=== PATIENT | male | born 1940 | race Caucasian/White ===

== ENCOUNTER 2019-05-08 14:21 | Observation (INO) | payer MEDICARE, BC ==
[2019-05-08] MEDS ORDERED: NS 0.9% 1000 ML** 1,000 ML IV ONE (14:28)
--- NOTE | 2019-05-08 14:30 | ED ---
Neurological HPI - HPI Summary HPI Summary: Patient is a 79 y/o M presenting to [facility] with complaints of impaired speech, confusion, and fatigue. Danyell ling was called at 1423 on overhead, provider at bedside at this time to evaluate the patient. He states that Sx onset around 1300 today, 05/08/19. He characterizes his speech as stuttering and gibberish. Impaired speech is resolved at present, he reports episode lasted around 30-45 minutes. witnessed event. He states that he has had similar episodes previously but not of this length of time. No WORTHY is reported. Patient is on Eliquis. He is not a TPA candidate. He denies Hx of stroke, diabetes, HLD. Patient has Hx of HTN and notes he took his BP meds today. Patient does not report any fever, chills, erythema of eyes, sore throat, CP, SOB, cough, abdominal pain, N/V, dysuria, hematuria, myalgia, edema, rash, and dizziness. Home medications and allergies are reviewed. - History of Current Complaint Stated Complaint: STROKE/CHEST PAIN Hx Obtained From: Patient Onset/Duration: Started hours ago, Resolved Timing: Intermittent Episodes Lasting: - 30-45 minutes Character: Impaired Speech, Confusion, Other: - fatigue Associated Signs and Symptoms: Positive: Confusion, Impaired Speech. Negative: Headache, Dizziness, Nausea/Vomiting, Fever, Chest Pain, Shortness of Breath - Additional Pertinent History Primary Care Physician: [id number] - Allergy/Home Medications Allergies/Adverse Reactions: Allergies Allergy/AdvReac Type Severity Reaction Status Date / Time tetracycline Allergy Rash Verified 05/08/19 18:42 Home Medications: Home Medications Allopurinol TAB* [Zyloprim 100 MG TAB*] 100 mg PO DAILY 05/08/19 [History Confirmed 05/08/19] Colchicine* [Colcrys*] 0.6 mg PO DAILY 05/08/19 [History Confirmed 05/08/19] Cyanocobalamin TAB* [Vitamin B12 TAB*] 1,000 mcg PO DAILY 05/08/19 [History Confirmed 05/08/19] Losartan Potassium 100 mg PO DAILY 05/08/19 [History Confirmed 05/08/19] Omeprazole CAP (NF) [Prilosec CAP* 20 MG] 20 mg PO DAILY 05/08/19 [History Confirmed 05/08/19] PMH/Surg Hx/FS Hx/Imm Hx Endocrine/Hematology History: Denies: Hx Diabetes Cardiovascular History: Reports: Hx Hypercholesterolemia, Hx Hypertension - ON MEDS Denies: Hx Congestive Heart Failure, Hx Pacemaker/ICD, Other Cardiovascular Problems/Disorders GI History: Denies: Other GI Disorders History: Reports: Hx Benign Prostatic Hyperplasia Denies: Hx Renal Disease Sensory History: Reports: Hx Contacts or Glasses - GLASSES Denies: Hx Hearing Aid Opthamlomology History: Reports: Hx Contacts or Glasses - GLASSES Neurological History: Reports: Hx Transient Ischemic Attacks (TIA) - first TIA today 05/14/13, Other Neuro Impairments/Disorders - neuropathy in feet Psychiatric History: Denies: Hx Panic Disorder - Surgical History Surgery Procedure, Year, and Place: Trigger finger surgeries: L thumb 2011, R middle finger 03/07/09, left middle finger 07/26/08, R little finger 05/06/08, R and L ring finger 10/14/06;. R knee arthroscopy 12/31/05,. Appendectomy;. LUMBAR SPINE SURGERY 15 YEARS AGO;. LEFT EYE, 15 YRS AGO Hx Anesthesia Reactions: No - Immunization History Date of Tetanus Vaccine: <10yrs Date of Influenza Vaccine: Fall 2012 Infectious Disease History: Denies: Traveled Outside the [place] in Last 30 Days - Family History Known Family History: Positive: Diabetes - Social History Alcohol Use: Daily Alcohol Amount: 2 DRINKS Substance Use Type: Reports: None Smoking Status (MU): Former Smoker Amount Used/How Often: 1.5 PACKS A DAY Have You Smoked in the Last Year: No Review of Systems Positive: Fatigue. Negative: Fever, Chills Negative: Erythema Negative: Sore Throat Negative: Chest Pain Negative: Shortness Of Breath, Cough Negative: Abdominal Pain, Vomiting, Nausea Negative: dysuria, hematuria Negative: Myalgia, Edema Negative: Rash Neurological: Other - negative - dizziness; positive - impaired speech and confusion Negative: Headache All Other Systems Reviewed And Are Negative: Yes Physical Exam - Summary Physical Exam Summary: Constitutional: Well-developed, Well-nourished, Alert. (-) Distressed Skin: Warm, Dry HENT: Normocephalic; Atraumatic Eyes: Conjunctiva normal Neck: Musculoskeletal ROM normal neck. (-) JVD, (-) Stridor, (-) Tracheal deviation Cardio: Rhythm regular, rate normal, Heart sounds normal; Intact distal pulses; The pedal pulses are 2+ and symmetric. Radial pulses are 2+ and symmetric. (-) Murmur Pulmonary/Chest wall: Effort normal. (-) Respiratory distress, (-) Wheezes, (-) Rales Abd: Soft, (-) tenderness, (-) Distension, (-) Guarding, (-) Rebound Musculoskeletal: (-) Edema Lymph: (-) Cervical adenopathy Neuro: Alert, Oriented x3, Strength normal, Cranial nerves II-XII are grossly intact. (-) Dysmetria, (-) Nystagmus, (-) Ataxia by finger to nose testing, (-) Sensory deficit. GCS 15, NIH 0. Psych: Mood and affect Normal Triage Information Reviewed: Yes Vital Signs On Initial Exam: Initial Vitals Temp Pulse Resp BP Pulse Ox 97.8 F 68 13 161/96 97 05/08/19 14:27 05/08/19 14:27 05/08/19 14:27 05/08/19 14:27 05/08/19 14:27 Vital Signs Reviewed: Yes - [place] Coma Scale Best Eye Response: 4 - Spontaneous Best Motor Response: 6 - Obeys Commands Best Verbal Response: 5 - Oriented Coma Scale Total: 15 Procedures - Sedation Patient Received Moderate/Deep Sedation with Procedure: No Diagnostics - Laboratory Result Diagrams: 05/09/19 04:59 05/09/19 04:59 Lab Statement: Any lab studies that have been ordered have been reviewed, and results considered in the medical decision making process. - Radiology CXR Radiology Interpretation Completed By: Radiologist Summary of Radiographic Findings: CXR IMPRESSION: #. No evidence for acute intrathoracic disease. THIS REPORT WAS REVIEWED BY DR. DIMAS. - CT BRAIN CT CT Interpretation Completed By: Radiologist Summary of CT Findings: BRAIN CT IMPRESSION: NO ACUTE INTRACRANIAL PATHOLOGY. CHRONIC SMALL VESSEL ISCHEMIC CHANGES. THIS REPORT WAS REVIEWED DR. DIMAS HEAD CTA CT Interpretation Completed By: Radiologist Summary of CT Findings: HEAD CTA IMPRESSION: ATHEROSCLEROSIS. NO INTERNAL CAROTID ARTERY STENOSIS BY NASA CRITERIA. NO ANEURYSM, VASCULAR MALFORMATION, OCCLUSION, OR STENOSIS OF THE VISUALIZED INTRACRANIAL. CIRCULATION. THIS REPORT WAS REVIEWED BY DR. DIMAS. - EKG 1454 Cardiac Rate: Other Rate - afib with rate of 63 BPM EKG Rhythm: Atrial Fibrillation Summary of EKG Findings: EKG showed afib with rate of 63 BPM, RBBB and no STEMI. ED physician has reviewed and interpreted this EKG. NIH Scale - NIH Scale Level of Consciousness: Alert/Keenly Responsive Ask Patient the Month and His/Her Age: Both Correct Ask Pt to Open/Close Eyes and Dust Operator/Release Non-Paretic Hand: Both Correctly Best Gaze (Only Horizontal Eye Movement): Normal Visual Field Testing: No Visual Loss Facial Paresis-Pt to Smile & Close Eyes or Grimace Symmetry: Normal/Symmetrical Motor Function - Right Arm: No Drift-Holds 10 Seconds Motor Function - Left Arm: No Drift-Holds 10 Seconds Motor Function - Right Leg: No Drift-Holds 10 Seconds Motor Function - Left Leg: No Drift-Holds 10 Seconds Limb Ataxia-Must be out of Proportion to Weakness Present: Absent Sensory (Use Pinprick to Test Arms/Legs/Trunk/Face): Normal Best Language (Describe Picture, Name Items): No Aphasia Dysarthria (Read Several Words): Normal Extinction and Inattention: No Abnormality Total Score: 0 Course/Dx - Course Course Of Treatment: Patient is a 79 y/o M presenting to [facility] with complaints of impaired speech, confusion, and fatigue. Danyell anuradha was called at 1423 on overhead, provider at bedside at this time to evaluate the patient. He states that Sx onset around 1300 today, 05/08/19. He characterizes his speech as stuttering and gibberish. Impaired speech is resolved at present, he reports episode lasted around 30-45 minutes. witnessed event. He states that he has had similar episodes previously but not of this length of time. No WORTHY is reported. Patient is on Eliquis. He is not a TPA candidate. He denies Hx of stroke, diabetes, HLD. Patient has Hx of HTN and notes he took his BP meds today. On physical exam, patient is Alert, Oriented x3, Strength normal, Cranial nerves II-XII are grossly intact. (-) Dysmetria, (-) Nystagmus, (-) Ataxia by finger to nose testing, (-) Sensory deficit. GCS 15, NIH 0. CXR IMPRESSION: #. No evidence for acute intrathoracic disease. BRAIN CT IMPRESSION: NO ACUTE INTRACRANIAL PATHOLOGY. CHRONIC SMALL VESSEL ISCHEMIC CHANGES. Bloodwork was obtained. Abnormal values include trop 0.07, vitamin B12 > 1450, INR 1.42, BUN 30, creatinine 1.46, BUN/creatinine ratio 20.5, absolute monos 0.9. Lipid profile WNL. During ED course, patient received fluids. HEAD CTA IMPRESSION: ATHEROSCLEROSIS. NO INTERNAL CAROTID ARTERY STENOSIS BY NASA CRITERIA. NO ANEURYSM, VASCULAR MALFORMATION, OCCLUSION, OR STENOSIS OF THE VISUALIZED INTRACRANIAL. CIRCULATION. 1512 - Dr. Rendon recommends admission of patient for observation. 1530 - Patient's case was discussed with Dr. Montaño, Dr. Montaño accepts for admission. - Diagnoses Provider Diagnoses: TIA (transient ischemic attack) During the Visit The Following Alert/Code Occurred: Code Santos - Code ling was called at 1423 on overhead, provider at bedside at this time to evaluate the patient. 1427 - Dr. Rendon in ED to evaluate patient BRAIN CT done at 1428. 1437 - Dr. Crawford communicated results of brain CT over the phone. - Physician Notifications Discussed Care Of Patient With: Hira Rendon Time Discussed With Above Provider: 15:12 Instructed by Provider To: Other - 1512 - Dr. Rendon recommends admission of patient for observation. 1530 - Patient's case was discussed with Dr. Montaño, Dr. Montaño accepts for admission. - Critical Care Time Critical Care Time: 30-74 min - 60 MINUTES CCT Discharge ED - Sign-Out/Discharge Documenting (check all that apply): Patient Departure - admit All imaging exams completed and their final reports reviewed: Yes Patient Received Moderate/Deep Sedation with Procedure: No - Discharge Plan Condition: Good Disposition: ADMITTED TO [facility] - Billing Disposition and Condition Condition: GOOD Disposition: Admitted to [facility] - Attestation Statements Document Initiated by Dahiana: Yes Documenting Scribe: RAJINDER ULLOA Provider For Whom Dahiana is Documenting (Include Credential): PAM DIMAS MD Scribe Attestation: RAJINDER Wan, scribed for PAM DIMAS MD on 05/23/19 at 1301. Scribe Documentation Reviewed: Yes Provider Attestation: The documentation as recorded by the RAJINDER boucher accurately reflects the service I personally performed and the decisions made by me, PAM DIMAS MD Status of Scribe Document: Viewed
[2019-05-08 14:56] LABS: ABS Eosinophils 0.1 10^3/ul (0-0.6); ABS Lymphocytes 2.3 10^3/ul (1.0-4.8); ABS Monocytes 0.9 10^3/ul (0-0.8); ABS Neutrophils 4.3 10^3/ul (1.5-7.7); Eosinophil % 1.3 %; Hematocrit 47 % (42-52); Hemoglobin 15.7 g/dL (14.0-18.0); Lymphocyte % 30.6 %; Mean Corpuscular HGB Conc 33 g/dL (31-36); Mean Corpuscular Hemoglobin 30 pg (27-31); Mean Corpuscular Volume 90 fL (80-94); Mean Platelet Volume 7.7 fL (7.4-10.4); Platelet Count 189 10^3/uL (150-450); Red Blood Count 5.25 10^6 /uL (4.18-5.48); Red Cell Distribution Width 15 % (10-15); White Blood Count 7.6 10^3/uL (3.5-10.8)
[2019-05-08 15:04] LABS: Activated Partial Thrombo Time 35.2 seconds (26.0-38.0); INR 1.42 (0.82-1.09)
[2019-05-08 15:18] LABS: ALT 34 U/L (7-52); AST 38 U/L (13-39); Albumin/Globulin Ratio 1.4 (1-3); Alkaline Phosphatase 98 U/L (34-104); Anion Gap 6 mmol/L (2-11); BUN/Creatinine Ratio 20.5 (8-20); Blood Urea Nitrogen 30 mg/dL (6-24); CO2 Carbon Dioxide 28 mmol/L (22-32); Chloride 104 mmol/L (101-111); Cholesterol 149 mg/dL; EGFR African American 56.2 (>60); EGFR Non-African American 46.5 (>60); Globulin 2.8 g/dL (2-4); Glucose 93 mg/dL (70-100); HDL Cholesterol 49.1 mg/dL; LDL Cholesterol 76 mg/dL; Potassium 4.3 mmol/L (3.5-5.0); Sodium 138 mmol/L (135-145); Total Protein 6.8 g/dL (6.4-8.9); Triglycerides 121 mg/dL
[2019-05-08 15:22] LABS: Troponin I 0.07 ng/mL (<0.04)
[2019-05-08] MEDS ORDERED: Iodixanol* (CONTRAST) 320 MG/ML 100 ML SDV IV ONE (15:52)
[2019-05-08 16:09] LABS: TSH (Thyroid Stimulating Horm) 1.61 mcIU/mL (0.34-5.60)
--- NOTE | 2019-05-08 16:18 | CONS ---
NEUROLOGY CONSULTATION NOTE: DATE OF CONSULT: 05/08/19 CONSULTING PROVIDER: Dr. Dmitry Banegas. REASON FOR CONSULT: Slurred speech. CHIEF COMPLAINT: Garbled speech. 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 The patient was working outside to remove a battery from a four-brown. His spouse witnessed the event. He was last known well at 1300. Symptoms onset was at 1335. His stated that his back was turned to her, but he was having trouble finding his words and his words were slurred and garbled. This lasted for approximately 5- 10 minutes. The patient denied any lateralized weakness. His spouse asked the patient that if he was having trouble with words and he reported yes and therefore he was transported here for further evaluation. The patient takes Eliquis regularly. NIH Stroke Scale upon arrival was 0. NIH Stroke Scale on my evaluation is 0. Code ling was activated at 1421. I was at bedside at 1425. The patient is not a tPA candidate due to low NIH, being asymptomatic and on anticoagulation therapy (decision made: 1425). The patient took his Eliquis dose this morning. He also stated that he just had a Holter monitor over the last 24 hours for symptoms of palpitations. He was being evaluated for atrial fibrillation with rapid ventricular rate. Results of the Holter monitoring are not available. The patient had a CT head without contrast completed on 05/08/19 that showed diffuse cortical atrophy with extensive advanced white matter changes in the subcortex. There is also calcification of the left vertebral artery. There is no hyperdense signs. The patient is not on aspirin. PAST MEDICAL HISTORY: Hypertension, dyslipidemia, TIA, peripheral neuropathy. PAST SURGICAL HISTORY: Right meniscal repair. HOME MEDICATIONS: 1. Pravastatin 40 mg nightly. 2. Indomethacin 25 mg p.o. q.i.d. 3. Furosemide 20 mg p.o. daily. 4. Eliquis 5 mg p.o. b.i.d. 5. Viagra 100 mg p.o. daily as needed. ALLERGIES: MORPHINE SULFATE, TETRACYCLINE. FAMILY HISTORY: No family history of seizures. The patient's mother of complications of Alzheimer disease. His father had TIAs and strokes and at age 86. SOCIAL HISTORY: The patient is a former smoker, stopped smoking approximately 30 years ago. He had smoked a pack a day for 20 years. 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 He is with his , who is in the emergency room at this time. REVIEW OF SYSTEMS: A 14-point review of systems was obtained and otherwise negative except for what was mentioned in the HPI. PHYSICAL EXAM: Vitals: Temperature of 97.8, pulse of 68, respiratory rate of 13, oxygen saturation of 97%, blood pressure 161/96. Well-nourished, well- developed, elderly man, in no acute distress. Head: Atraumatic, normocephalic without any obvious abnormality. Neck is supple and symmetrical with no carotid bruits. Eyes: Conjunctivae/corneas are clear. Cardiovascular: Irregular rate and rhythm with no murmurs. Pulmonary: Clear to auscultation bilaterally. No wheezing or rhonchi. Extremities: Erythematous area in the medial foot around the great toe. Skin: No skin lesions or lacerations. Psych : Affect is broad, normal mood. Easy to establish rapport. Neurological Examination: Mental Status: Awake, alert, oriented to person, place, time, and general circumstances. Speech and language including fluency, repetition, reading, and comprehension were assessed and found to be normal. The patient has mild memory impairment, but according to his , he is extremely sharp with no memory problems. He was delayed in responding, although he answered all questions correctly. Cranial Nerves: Pupils are equal, round, and reactive to light. Extraocular muscles are intact. Normal sensation in the face bilaterally. No facial asymmetry. Tongue is symmetric and midline with no atrophy or fasciculation. Motor Examination: 5/5 strength in the upper and lower extremities symmetrically. Normal tone and bulk throughout. Sensation is intact to light touch throughout. Reflexes trace in the biceps, triceps, brachioradialis, knees, and 0 at the ankles bilaterally. Coordination: Normal ptauhj-tl-lssi and gbnv-op-motx testing. Gait: Normal stance with no ataxia. DIAGNOSTIC STUDIES/LAB DATA: Labs are not available at this time, but I reviewed a transesophageal echo completed on 03/26/17 that showed an EF of 50% to 55%. There is a report that stated that unable to rule out a mass or thrombus in the left atrial appendage. There is possible interatrial septum that appears lipomatous. 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 1. Dysarthria and aphasia concerning for left middle cerebral artery vascular territory transient ischemic attack versus small stroke. The patient is not a candidate for IV tPA due to NIH Stroke Scale is 0 currently and he is on anticoagulation therapy. This assessment and decision was made at 1425. He is not a candidate for mechanical thrombectomy due to low NIH Stroke Scale; therefore, we did not move forward and assess for large vessel occlusion. RECOMMENDATIONS: Please admit under observation. Start aspirin 81 mg daily in addition to Eliquis. Discussed hemorrhage risk with the patient and spouse. The combination of therapy will be just for a few months, 3-6 months- unless he has intracranial stenosis. Please obtain a transthoracic echo with bubble study to evaluate for the possible mass or lesion in the left atrium. No need for CTA head and neck since the patient is currently asymptomatic and has HAYLIE. I have ordered an MRI of the brain, MRA head, MRA neck without contrast to evaluate for any carotid disease or small stroke. No need for [employer], PT, OT due to the patient being asymptomatic at this time. VTE prophylaxis with Eliquis for his atrial fibrillation. Maximize secondary stroke preventions. Neuro checks every 4 hours. Vital checks every 4 hours. Obtain vitamin B12 and TSH levels. I will continue to follow. CRITICAL CARE TIME: 35 minutes for which the patient was assessed for sudden onset neurological disturbance and he was evaluated for tPA therapy which he was not a candidate for. [id number]/[facility] #: [id number] SASHA
--- NOTE | 2019-05-08 16:27 | ECHO ---
*[facility] [place]* [place] [address] Fax #: [phone] Transthoracic Echocardiogram Patient: Louis Beckham : 1940 Study Date: 05/08/2019 Age: 79 Gender: M HR: 53 bpm Height: 73 in /185.4 cm BSA: 2.03 m^2 Weight: 173.6 lb /78.9 kg BMI: 23 kg/m^2 *Boat Puller: * Suzanna Castro [facility] *Referring Physician: * Hira Rendon *Reading Physician: * Jani Ryan MD Indications: TIA. History: Atrial fibrillation. Atrial flutter. Risk factors: Hypertension. Dyslipidemia. Conclusions Summary: - Left ventricle: The cavity size is normal. Wall thickness is moderately increased. Systolic function is normal. The estimated ejection fraction is 50-55%. Wall motion is normal; there are no regional wall motion abnormalities. - Right ventricle: Systolic function is low normal. - Left atrium: The atrium is severely dilated. - Atrial septum: A PFO is not demonstrated by color Doppler or agitated saline contrast. - Mitral valve: There is mild regurgitation. - Aortic valve: There is no evidence of stenosis. There is mild regurgitation. - Tricuspid valve: There is mild regurgitation. - Pericardium, extracardiac: There is no significant pericardial effusion. - Compared to study of 03/26/17, there is no change. Study data: Transthoracic echocardiogram. Procedure: Transthoracic echocardiography was performed. Image quality was good. A bubble study was performed. Images 34 and 35. Complete 2D, spectral Doppler, and color flow Doppler. Location: Emergency department. Patient status: Inpatient. Patient room number: 12. Rhythm: Atrial fibrillation. Findings Left ventricle: The cavity size is normal. Wall thickness is moderately increased. Systolic function is normal. The estimated ejection fraction is 50-55%. Wall motion is normal; there are no regional wall motion abnormalities. Left ventricular diastolic function parameters are indeterminate. Right ventricle: The cavity size is normal. Systolic function is low normal. Left atrium: The atrium is severely dilated. Right atrium: The atrium is severely dilated. Atrial septum: A PFO is not demonstrated by color Doppler or agitated saline contrast. Mitral valve: The Mitral valve annulus appears calcified. The leaflets are mildly thickened. There is no evidence of stenosis. There is mild regurgitation. Aortic valve: The valve is trileaflet. The leaflets are mildly thickened. There is no evidence of stenosis. There is mild regurgitation. Tricuspid valve: The leaflets are normal thickness. There is no evidence of stenosis. There is mild regurgitation. Pulmonic valve: The leaflets are normal thickness. There is no evidence of stenosis. There is trace regurgitation. Aorta: The aortic root appears normal. Pericardium: There is no significant pericardial effusion. Pulmonary arteries: Not well visualized. Systolic pressure is within the normal range. Systemic veins: Inferior vena cava: The vessel is dilated. There is (>= 50%) respiratory change in the IVC dimension. Measurements Left ventricle Value Ref Aortic valve continued Value Ref NIKITA, LAX (L) 3.4 cm 4.2 - 5.8 Peak v, S 0.86 m/sec ----- ESD, LAX 2.7 cm 2.5 - 4.0 Peak grad, S 3.0 mm Hg ----- FS, LAX (L) 20 % 25 - 43 PW, ED, LAX (H) 1.9 cm 0.6 - 1.0 Mitral valve Value Ref EF (L) 41 % 52 - 72 Peak E 0.94 m/sec ----- E', lat colten, TDI (L) 7.9 cm/sec >=10.0 Peak A 0.02 m/sec - ---- E/e', lat colten, 12 Decel time 106 ms ---- - TDI PHT 41 ms ----- E', med colten, TDI (L) 5.8 cm/sec >=7.0 Mean grad, D 2.0 mm Hg - ---- E/e', med colten, 16 Peak grad, D 4.0 mm Hg ---- - TDI Peak E/A ratio 44.9 ----- E', avg, TDI 6.9 cm/sec MVA, PHT 3.6 cm^2 ---- - E/e', avg, TDI 14 <=14 Pulmonic valve Value Ref LVOT Value Ref Peak v, S 0.51 m/sec ----- Peak ezequiel, S 0.66 m/sec Peak grad, S 1.0 mm Hg ----- Ventricular septum Value Ref Tricuspid valve Value Ref IVS, ED (H) 1.7 cm 0.6 - 1.0 TR peak v 2.24 m/sec <=2.8 Peak RV-RA grad, S 20 mm Hg ----- Right ventricle Value Ref NIKITA, LAX 3.0 cm Aortic root Value Ref NIKITA minor ax, A4C 2.9 cm 1.9 - 3.5 Root diam 3.6 cm <4.2 mid Pressure, S 28 mm Hg Ascending aorta Value Ref AAo AP diam, S 3.1 cm ----- Left atrium Value Ref AP dim, ES (H) 4.80 cm 3.00 - Decending aorta Value Ref 4.00 Al peak ezequiel 0.36 m/sec ----- ML dim, A4C 4.9 cm SI dim, A4C 7.7 cm Pulmonary artery Value Ref Vol/bsa, ES, A/L (H) 69 ml/m^2 16 - 34 Pressure, S 27.0 mm Hg ----- Right atrium Value Ref Inferior vena cava Value Ref SI dim, ES (H) 7.2 cm 3.4 - 5.3 Diam 2.6 cm ----- ML dim, ES, A4C (H) 5.0 cm 2.6 - 4.4 Estimated RAP 8 mm Hg Aortic valve Value Ref Colten diam, ED 2.3 cm Legend: (L) and (H) jose carlos values outside specified reference range. Prepared and electronically signed by Jani Ryan MD 05/08/2019 16:26
[2019-05-08] MEDS ORDERED: Acetaminophen TAB* 325 MG PO PRN (18:00)
[2019-05-08 18:43] LABS: Troponin I 0.07 ng/mL (<0.04)
[2019-05-08] MEDS: Apixaban* 5 MG TAB PO SCH (20:08)
[2019-05-08] MEDS: Aspirin EC TAB* 81 MG TAB.EC PO SCH (20:08)
--- NOTE | 2019-05-08 20:12 | HP ---
CC: Dr. Kathleen * HISTORY AND PHYSICAL: DATE OF ADMISSION: 05/08/19 PROVIDER: Dianna Betancourt NP. PRIMARY CARE PROVIDER: Dr. Kathleen. ATTENDING PHYSICIAN WHILE IN THE HOSPITAL: Dr. Deanna Arams * (dictated by Dianna Betancourt NP). CHIEF COMPLAINT: Difficulty with word-finding, garbled speech. HISTORY OF PRESENT ILLNESS: Mr. Beckham is an 79-year-old gentleman with a past medical history significant for history of TIA, atrial flutter, history of gout and hyperlipidemia who presented to the emergency room after an episode of difficulty with word-finding and garbled speech that lasted 10 to 20 minutes. The patient reports that he awoke this morning. He felt in his normal state of health. He had been outside doing activities without any difficulty. He reports at approximately 1 p.m. this afternoon, he was talking to his and he was having trouble with word finding, confusion, and stumbling with words. Due to these symptoms, he presented to the emergency room for further evaluation. The patient does state that he has had some generalized weakness and he has felt tired times several months, but he denies any recent fever, chills, unintended weight loss, chest pain or edema, cough, hemoptysis, or shortness of breath. No nausea, vomiting, diarrhea or abdominal pain, hematuria or dysuria. Denies any focal weakness or sensory loss, visual complaints, dysphagia, arthralgias, myalgias, rashes, lesions, or open sores. Denies any psychosis or anxiety. While in the emergency room, the patient was a code ling. The patient was seen and evaluated by Dr. Rendon from neurology, who recommended that the patient be started on aspirin 81 mg, continue his pravastatin at 40 mg, neuro checks q.4 hours, and an MRI of the brain. The patient's NIH scale was 0 as his symptoms had totally resolved prior to evaluation in the emergency room. Due to his episode of difficulty with word finding and stumbling with words, hospital medicine was asked to see and evaluate for admission. PAST MEDICAL HISTORY: Significant for TIA, atrial flutter, gout, and hyperlipidemia. PAST SURGICAL HISTORY: Cataracts. HOME MEDICATIONS: Include: 1. Colchicine 0.6 mg p.o. daily. 2. Omeprazole 20 mg p.o. daily. 3. Vitamin B12 at 1000 mcg p.o. daily. 4. Allopurinol 100 mg p.o. daily. 5. Eliquis 5 mg p.o. b.i.d. 6. Losartan 100 mg p.o. daily. 7. Pravastatin 40 mg p.o. daily. 9. Norvasc 5 mg p.o. daily. 10. Metoprolol tartrate 50 mg p.o. b.i.d. ALLERGIES: To TETRACYCLINE. FAMILY [id number]: Father with a history of stroke. No reported history of diabetes or cancer in the family. SOCIAL HISTORY: The patient reports that he quit smoking 35 years ago. Prior to that, he smoked a pack a day for 35 years. He does report a daily martini. No illicit drug use. 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 He is . Surrogate decision maker in the event he is unable to make his own decisions is his . He is a full code. REVIEW OF SYSTEMS: A 14-point review of systems was completed and all pertinent positives were mentioned in the HPI. Otherwise, were negative. PHYSICAL EXAMINATION GENERAL: At this time, Mr. Beckham is an 79-year-old male. He is alert and oriented. Speech is clear. Resting on the stretcher in the emergency room. He is well developed and well nourished. VITAL SIGNS: Blood pressure 142/61, heart rate 52, respirations 16, O2 saturation 98%, temperature was 97.6. HEENT: Head is atraumatic, normocephalic. Eyes: EOMs are intact. Sclerae anicteric and not pale. Oral mucosa appeared to be moist. NECK: Supple. LUNGS: Clear to auscultation bilaterally. No wheezes, rales, or rhonchi. CARDIAC: S1, S2. Irregular rate and rhythm. No rubs or gallops. ABDOMEN: Soft and nontender. Bowel sounds are present x4. NEUROLOGIC: He is awake, alert, oriented x3. Speech is clear. Thought process is intact. There are no gross focal deficits. Handgrips are equal. There is no pronator drift. There is no leg drift. Push-pull is intact. Shoulder shrug is intact. [id number] is intact. Smile is equal. Tongue is midline. There is no facial asymmetry. Sensation is intact in all 4 extremities. SKIN: Intact. DIAGNOSTIC STUDIES/LAB DATA: WBCs are 7.6, RBCs 5.25, hemoglobin 15.7, hematocrit is 47, platelet count 189. INR 1.42, aPTT was 35.2. Sodium 138, potassium 4.3, chloride 104, carbon dioxide was 28, anion gap of 6, BUN 30, creatinine 1.46, glucose was 93, lactic acid 0.7, calcium 9.0. T-bili was 0.70 , ASTs were 38, ALTs were 34, alkaline phosphatase was 98. Troponin was 0.07. TSH was 1.61. Vitamin B12 was greater than 1450. The patient had a CT of the brain, radiologist's impression: No acute intracranial pathology. Small chronic vessel ischemic changes. He had a chest x-ray, radiologist's impression: No evidence of acute intrathoracic disease. He had an electrocardiogram that showed atrial fibrillation with a right bundle - branch block. He had a transthoracic echocardiogram, impression: Left ventricle: The cavity size is normal. The wall thickness is moderately increased. Systolic function is normal. Estimated ejection fraction 50% to 55%. Wall motion is normal. There are no regional wall motion abnormalities. Right ventricle: Systolic function is low normal. Right atrium is severely dilated. The atrial septum, a PFO was not demonstrated by color Doppler or agitated saline contrast. Mitral valve: There is mild regurgitation. Aortic valve: There is no evidence of stenosis. There is mild regurgitation. Tricuspid valve: There is mild regurgitation. Pericardium and extracardiac: There is no significant pericardial effusion. When compared to study from 03/26/17, there was no change. He had a CTA of the head and neck, radiologist's impression: Atherosclerosis. No internal carotid artery stenosis. No aneurysm, vascular malformation, occlusion, or stenosis is visualized in the intracranial circulation. ASSESSMENT AND PLAN: Mr. Beckham is an 79-year-old male with a past medical history significant for history of transient ischemic attack, atrial flutter, gout, and hyperlipidemia who presented to the emergency room with a 10- to 20- minute episode of difficulty with word finding and stumbling with words as well as confusion that resolved. He will be admitted under observation for: 1. Transient ischemic attack. The patient has returned to baseline at this time. He was seen in consultation by Dr. Rendon from neurology, who recommended neuro checks q.4 hours, aspirin 81 mg, continue his Pravachol at 40 mg p.o. daily, and secondary stroke prevention. He also ordered an MRI of the brain that is currently pending at this time. We will monitor the patient on telemetry overnight. 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 2. Acute kidney injury. The patient does have an elevated BUN and creatinine when compared to previous BUN and creatinine from 04/25/19. I suspect this could be related to dehydration. He did receive IV fluids in the emergency room. I will repeat a BMP in the a.m. We will avoid nephrotoxic medications. 3. Elevated troponin. The patient does have elevated troponin of 0.07. The patient in the past in 2017 also had an elevated troponin of 0.06 and has had previous elevation in troponins of 0.04 in 2016. I suspect this could be related to demand ischemia. The patient denies any chest pain. The patient did have a transthoracic echocardiogram that showed no wall motion abnormality. I will continue the patient on his beta flex and aspirin, Eliquis, and statin. I will repeat an EKG and continue to trend his troponin. 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 He does report a decrease in activity tolerance over the past 6 months, but denies exertional chest pain or shortness of breath. Would recommend further workup. 4. Atrial flutter. The patient does have a history of atrial flutter. He has had 3 episodes of pauses up to 2.08 seconds in the emergency room. We will continue to monitor him on telemetry. I will continue his metoprolol tartrate 50 mg p.o. b.i.d. with holding parameters for heart rate less than 50 and systolic blood pressure less than 110. We will continue him on his Eliquis. 5. Hyperlipidemia. The patient should continue on Pravachol 40 mg p.o. daily. 6. FEN: He can have a heart-healthy, caffeine-okay diet. 7. Code status: He is a full code. 8. DVT prophylaxis: We will continue his Eliquis. 9. Disposition: The patient will be placed under observation on [address] [place] [address]. TIME SPENT: Time spent on this admission was approximately 60 minutes, greater than half that time was spent at the bedside reviewing events leading thus far to his hospitalization, performing physical exam, and reviewing my plan of care. I have discussed this with my attending, Dr. Deanna Armas; she is in agreement with my plan. DIANNA BETANCOURT, UNIQUE [id number]/[facility] #: [id number] SASHA
[2019-05-08] MEDS ORDERED: Metoprolol Tartrate TAB* 25 MG PO SCH (21:00)
[2019-05-08] MEDS ORDERED: Metoprolol Tartrate TAB* 50 mg PO SCH (21:00)
[2019-05-08 22:14] LABS: Troponin I 0.06 ng/mL (<0.04)
--- NOTE | 2019-05-09 00:53 | PN ---
Progress Note - Progress Note Date of Service: 05/08/19 Note: Event Note: Patient having asymptomatic pauses over 3 seconds. He has a-fib, here with ? TIA. Patient awakened, no symptoms. Selected Entries 05/09/19 00:01 Heart Rate 43 Respiratory 14 Rate Blood Pressure 119/79 (mmHg) O2 Sat by Pulse 96 Oximetry A/P: bradycardia w/ concerning pauses. 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
[2019-05-09 05:09] LABS: ABS Eosinophils 0.1 10^3/ul (0-0.6); ABS Lymphocytes 2.2 10^3/ul (1.0-4.8); ABS Monocytes 0.7 10^3/ul (0-0.8); ABS Neutrophils 3.7 10^3/ul (1.5-7.7); Eosinophil % 1.4 %; Hematocrit 46 % (42-52); Hemoglobin 14.9 g/dL (14.0-18.0); Lymphocyte % 32.9 %; Mean Corpuscular HGB Conc 33 g/dL (31-36); Mean Corpuscular Hemoglobin 29 pg (27-31); Mean Corpuscular Volume 90 fL (80-94); Mean Platelet Volume 7.8 fL (7.4-10.4); Platelet Count 168 10^3/uL (150-450); Red Blood Count 5.05 10^6 /uL (4.18-5.48); Red Cell Distribution Width 15 % (10-15); White Blood Count 6.7 10^3/uL (3.5-10.8)
[2019-05-09 05:24] LABS: BUN/Creatinine Ratio 21.7 (8-20); Calcium 9.1 mg/dL (8.6-10.3); EGFR African American 81.3 (>60); EGFR Non-African American 67.2 (>60); Potassium 4.1 mmol/L (3.5-5.0)
[2019-05-09] MEDS: Aspirin EC TAB* 81 MG TAB.EC PO SCH (08:18)
[2019-05-09] MEDS: Apixaban* 5 MG TAB PO SCH (08:20)
[2019-05-09] MEDS ORDERED: Atorvastatin* 10 MG TAB PO SCH (09:00)
[2019-05-09] MEDS ORDERED: Allopurinol TAB* 100 MG PO SCH (09:00)
[2019-05-09] MEDS ORDERED: Cyanocobalamin TAB* 500 MCG PO SCH (09:00)
[2019-05-09] MEDS ORDERED: Pantoprazole TAB * 40 MG TAB PO SCH (09:00)
[2019-05-09 10:18] LABS: Urine Appearance Clear; Urine Bilirubin Negative (Negative); Urine Blood Negative (Negative); Urine Color Straw; Urine Glucose Negative (Negative); Urine Ketones Negative (Negative); Urine Nitrite Negative (Negative); Urine Protein Negative (Negative); Urine Specific Gravity 1.004 (1.010-1.030); Urine Urobilinogen Negative (Negative)
[2019-05-09 11:00] VITALS: BP 151/88
--- NOTE | 2019-05-09 12:03 | PN ---
Subjective Date of Service: 05/09/19 Length of Stay: 1 Days Neurology is following for TIA. Interval History: Mr. Beckham had a few cardiac pauses, 2-3 seconds. He is in atrial fibrillation with a rate in the 50-60's. He denied any recurrence of slurred speech or word finding difficulty. He denied any focal weakness or paresthesia. CTA head and neck 05/08/2019: atherosclerosis, no ICA stenosis, no intracranial stenosis or occlusion. MRI brain without contrast completed on 05/08/2019: No areas of restricted diffusion. Diffuse white matter changes consistent with advanced small vessel ischemic changes. TTE: EF 50-55%. PFO is not demonstrated. Atrium is severely dilated. No evidence of a left atrial mass or thrombus. Vitamin B12: >1450 TSH: 1.61 BUN: 30 Creatinine: 1.46 BUN/Creatinine ratio: 20.5 improved today to BUN 23 , creatinine 1.06. Review of Systems: Denied CP, SOB, or palpitations. Objective Active Medications: Acetaminophen (Tylenol Tab*) 650 mg PO Q6H PRN PRN Reason: MILD PAIN or TEMP > 100.4 Allopurinol (Zyloprim Tab*) 100 mg PO DAILY [facility] Last Admin: 05/09/19 08:20 Dose: 100 mg Apixaban (Eliquis*) 5 mg PO BID [facility] Last Admin: 05/09/19 08:20 Dose: 5 mg Aspirin (Aspirin Ec Tab*) 81 mg PO DAILY [facility] Last Admin: 05/09/19 08:18 Dose: 81 mg Atorvastatin Calcium (Lipitor*) 10 mg PO DAILY [facility] Last Admin: 05/09/19 08:19 Dose: 10 mg Cyanocobalamin (Vitamin B12 Tab*) 1,000 mcg PO DAILY [facility] Last Admin: 05/09/19 08:19 Dose: 1,000 mcg Pantoprazole Sodium (Protonix Tab*) 40 mg PO DAILY [facility] Last Admin: 05/09/19 08:22 Dose: 40 mg Vital Signs 05/08/19 05/08/19 05/08/19 14:27 14:28 15:12 Temperature 97.8 F Pulse Rate 68 61 Respiratory 13 20 Rate Blood Pressure 161/96 132/88 (mmHg) O2 Sat by Pulse 97 95 97 Oximetry 05/08/19 05/08/19 05/08/19 15:41 16:03 16:11 Temperature Pulse Rate 61 62 58 Respiratory 15 15 15 Rate Blood Pressure 128/74 127/85 (mmHg) O2 Sat by Pulse 97 94 98 Oximetry 05/08/19 05/08/19 05/08/19 16:41 17:00 17:11 Temperature Pulse Rate 63 66 63 Respiratory 19 18 16 Rate Blood Pressure 139/113 137/87 (mmHg) O2 Sat by Pulse 97 97 97 Oximetry 05/08/19 05/08/19 05/08/19 17:41 17:53 18:11 Temperature 97.9 F 97.6 F Pulse Rate 66 67 52 Respiratory 15 18 16 Rate Blood Pressure 132/88 132/88 142/61 (mmHg) O2 Sat by Pulse 95 99 98 Oximetry 05/08/19 05/08/19 05/08/19 19:19 20:00 22:34 Temperature 97.8 F 97.8 F Pulse Rate 67 70 67 Respiratory 16 16 16 Rate Blood Pressure 142/84 141/87 114/67 (mmHg) O2 Sat by Pulse 98 97 99 Oximetry 05/08/19 05/08/19 05/09/19 23:17 23:57 00:00 Temperature 97.2 F 97.0 F Pulse Rate 64 Respiratory 17 17 Rate Blood Pressure 140/102 (mmHg) O2 Sat by Pulse 98 Oximetry 05/09/19 05/09/19 05/09/19 00:01 00:18 01:00 Temperature Pulse Rate 54 65 59 Respiratory 14 17 15 Rate Blood Pressure 119/79 (mmHg) O2 Sat by Pulse 96 96 96 Oximetry 05/09/19 05/09/19 05/09/19 01:01 02:00 03:00 Temperature Pulse Rate 52 58 66 Respiratory 15 18 15 Rate Blood Pressure 121/80 (mmHg) O2 Sat by Pulse 97 98 95 Oximetry 05/09/19 05/09/19 05/09/19 03:13 03:22 03:29 Temperature 97.2 F Pulse Rate 62 Respiratory 20 19 Rate Blood Pressure 116/71 (mmHg) O2 Sat by Pulse 96 Oximetry 05/09/19 05/09/19 05/09/19 04:00 05:00 06:00 Temperature Pulse Rate 62 70 71 Respiratory 16 17 14 Rate Blood Pressure 124/81 143/97 (mmHg) O2 Sat by Pulse 95 95 97 Oximetry 05/09/19 05/09/19 05/09/19 06:01 07:00 08:00 Temperature 97.6 F Pulse Rate 63 61 61 Respiratory 16 17 20 Rate Blood Pressure 122/84 128/79 135/90 (mmHg) O2 Sat by Pulse 97 97 92 Oximetry 05/09/19 05/09/19 05/09/19 09:00 10:00 10:49 Temperature Pulse Rate 61 73 74 Respiratory 19 23 19 Rate Blood Pressure 151/88 (mmHg) O2 Sat by Pulse 99 97 98 Oximetry 05/09/19 11:00 Temperature Pulse Rate 75 Respiratory 19 Rate Blood Pressure (mmHg) O2 Sat by Pulse 98 Oximetry Intake and Output Last 24 Hours 05/07/19 05/08/19 05/09/19 05/10/19 06:59 06:59 06:59 06:59 Intake Total 1000 150 Output Total 1000 1450 Balance 0 -1300 Weight 170 lb 3.15 oz Intake: IV Fluids 1000 Oral 0 150 Output: Urine 1000 1450 Oxygen Devices in Use Now: None Neurology Exam: General: Well nourished, well developed, and in no acute distress HEENT: Normocephelic/atraumatic, sclera anicteric, mucous membranes moist Neck: Supple Chest: Clear to auscultation bilaterally Cardiovascular: Regular rate and rhythm without murmurs, rubs, gallops Abdomen: Soft, non-tender/non-distended Extremities: No clubbing, cyanosis, or edema Neurological Findings: Awake, alert, and oriented to person, place, and time. Speech: fluent without dysarthria, repetition intact Cranial Nerve: PERRL, EOM intact, VFF, no nystagmus, face symmetric bilaterally , facial sensation intact, hearing intact to finger rub bilaterally, palate elevates symmetrically, tongue midline, SCM and Trapezius s/s. Motor: s/s throughout, proximal and distal extremities x4 tone/bulk normal Sensation: intact to LT/PP bilaterally upper and lower extremities Deep Tendon Reflex: 2+ symmetric in the upper/lower extremities, Babinski - down going Finger to nose, rapid alternating movements intact without tremor, no dysdiadochokinesia Gait: intact with good arm swing and stride Result Diagrams: 05/09/19 04:59 05/09/19 04:59 Microbiology and Other Data: Microbiology 05/08/19 23:28 Nasal Screen MRSA (PCR) - Final Nasal Mrsa Not Detected Assessment/Plan 1. Probable TIA involving the left MCA vascular territory distribution- - Other differential diagnosis include dehydration as the patient's BUN, Creatinine, and BUN/Creatinine ratio were elevated and he was working outside prior to this incident. - Completely resolved. NIHSS 0. - Started aspirin 81 mg for 3 months (no literature or standard of care for this recommendation). However, he does have extensive white matter changes and the aspirin may help stabilize any possible small vessel distal occlusion. - Continue Eliquis - Discussed the risk of bleeding. I advised him to discontinue all therapy and come back to the ED if he develops any signs of bleeding. - No need for PT/OT/STAFF RN since he is asymptomatic. - Follow-up with neurology at [facility] in 6-8 weeks. 2. Atrial fibrillation- on anticoagulation therapy 3. Recent cardiac pause- defer to cardiology. B-blockers discontinued.
--- NOTE | 2019-05-09 19:01 | CONS ---
CC: Dr. Ronal Wilkins, [facility]; Dr. Ilana Kathleen, [place], [place] * CARDIOLOGY CONSULTATION: DATE OF CONSULT: 05/09/19 INDICATION FOR CONSULTATION: Atrial fibrillation, TIA, bradycardia. HISTORY OF PRESENT ILLNESS: The patient is an 79-year-old gentleman with a history of atrial fibrillation, what appears to be paroxysmal atrial fibrillation, history of hyperlipidemia, gout, and hypertension who came to the hospital because of word finding difficulties that lasted 10 to 20 minutes. The patient was diagnosed with a TIA. A CAT scan was unremarkable. The patient did not get thrombolytics. The patient has a history of paroxysmal atrial fibrillation. He is on chronic Eliquis for prevention of thromboembolic event. The patient states that he was originally diagnosed with atrial fibrillation a couple of years ago when he was up in [place], he went into atrial flutter and was started on Eliquis at that time. The patient had recently seen Dr. Wilkins, and there was some concern about his heart rhythm. The patient did undergo a Holter monitor last week. I do not have access to those. I did speak with Dr. Wilkins. He had noted that the patient was in atrial fibrillation and was considering cardioversion in the near future. The patient denied any chest pain. The patient denied any palpitations. The patient denied any lightheadedness, dizziness, or syncope. PAST MEDICAL HISTORY: Significant for: 1. TIA. 2. Atrial fibrillation. 3. Gout. 4. Hyperlipidemia. PAST SURGICAL HISTORY: Cataract surgery. OUTPATIENT MEDICATIONS: 1. Colchicine 0.6 mg a day. 2. Omeprazole 20 mg a day. 3. Allopurinol 100 mg a day. 4. Eliquis 5 mg b.i.d. 5. Losartan 100 mg a day. 6. Pravastatin 40 mg a day. 7. Norvasc 5 mg a day. 8. Metoprolol tartrate 50 mg b.i.d. ALLERGIES: TETRACYCLINE. FAMILY HISTORY: Father with a history of stroke. No history of arrhythmias in the family. SOCIAL HISTORY: He is a previous smoker. He quit 35 years ago. 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 He reports drinking 1 alcoholic drink a day. REVIEW OF SYSTEMS: Negative for fevers and chills. Negative for changes in bowel or bladder habits. Negative for changes in weight. Other 12-point review is unremarkable. PHYSICAL EXAM: Height is 5 feet 11 inches, weight is 170 pounds. Temperature 97.7, heart rate is 81, blood pressure 150/88, respiratory rate is 19, oxygen saturation 98% on room air. Sclerae anicteric. Oropharynx is pink without erythema. Carotids are 2+ without bruits. JVD is normal. Thyroid is normal. Cardiac Exam: S1, S2 without any murmurs, rubs, or gallops. PMI is normal. Lungs are clear to auscultation bilaterally. No dullness to percussion. Abdomen is soft, nontender, nondistended with normoactive bowel sounds. Extremities show no edema. He does have a gouty flare on his right big toe. He has 2+ pulses throughout. The patient is awake, alert, and oriented. He moves all 4 extremities equally. LABORATORY DATA/DIAGNOSTIC STUDIES: CBC within normal limits. Chemistries within normal limits. Total cholesterol 149. TSH 161. Troponin 0.07. AST and ALT are normal. IMPRESSION: This is an 79-year-old gentleman with a history of paroxysmal atrial fibrillation, who was admitted to the hospital with a transient ischemic attack. His echocardiogram was unremarkable. His EKG shows atrial fibrillation but otherwise unremarkable. On telemetry, the patient was noted to have 2- to 3-second pauses when he was asleep. His average heart rate was 70 beats per minute. He had no symptoms associated with lightheadedness, dizziness, or bradycardia. At this point, I think the patient's atrial fibrillation is persistent. The patient will follow up with Dr. Wilkins regarding treatment of his atrial fibrillation and potential use of antiarrhythmic medications if necessary. At this point, the patient does not need a pacemaker. He does not have a significant evidence of bradycardia or tachy-ty syndrome. It is my recommendation that the patient's metoprolol be decreased to 25 mg twice a day, his other medications will remain the same. I do not think any other cardiac testing is necessary. This case was discussed with Dr. Dow and with Dr. Wilkins. [id number]/[facility] #: [id number] [facility]
--- NOTE | 2019-05-10 02:55 | DS ---
CC: Dr. Ilana Kathleen; Dr. Wilkins * DISCHARGE SUMMARY: DATE OF ADMISSION: 05/08/19 DATE OF DISCHARGE: 05/09/19 PRIMARY CARE PROVIDER: Dr. Ilana Kathleen. HANDSTITCHING MACHINE COLLAR FELLER: Dr. Wilkins. PRIMARY DIAGNOSES: 1. Transient ischemic attack. 2. Atrial fibrillation with pauses while on beta flex. 3. Hypertension. SECONDARY DIAGNOSIS: Gout. CONSULTS: Dr. Rendon of neurology and Dr. Ryan of cardiology. DISCHARGE MEDICATIONS: 1. Aspirin 81 mg daily. 2. Pravastatin 40 mg daily. 3. Apixaban 5 mg twice a day. 4. Losartan 100 mg daily. 5. Allopurinol 100 mg daily. 6. Colchicine 0.6 mg daily. 7. Omeprazole 20 mg daily. 8. Vitamin B12 at 1000 mcg daily. HISTORY OF PRESENT ILLNESS: Mr. Beckham is an 79-year-old man with atrial fibrillation; on Eliquis, gout, hypertension, and history of TIA who presented to the hospital due to word-finding difficulties for approximately 10 to 20 minutes. HOSPITAL COURSE: In the emergency room, a code ling was initiated. The patient received a CT scan, which was unremarkable. His symptoms had resolved and he did not receive thrombolytic therapy. The patient was admitted to the medical floor for further workup. However, of note, on his first evening of admission, he was noted to have frequent pauses on telemetry lasting up to 3 seconds, so he was transferred to the ICU for Holter monitoring with transcutaneous pacer pads. The patient notes that he was initially diagnosed with atrial fibrillation a few years ago and also with a history of atrial flutter. He also states that he recently saw Dr. Wilkins and there was some concern about his heart rhythm, so he had a Holter monitor, although we do not have access to those records. It appears that the patient may be undergoing consideration for cardioversion in the near future. By the next morning, the patient's metoprolol had been held and he was seen by Dr. Ryan of cardiology, who recommended to discontinue the patient's metoprolol and follow up with his outpatient coating inspector. His echocardiogram and EKG were not concerning for new ischemic disease or structural disease. The patient's pauses were asymptomatic and improved after the beta flex was held. He was also seen and evaluated by Dr. Saada of neurology, who recommended to initiate aspirin therapy for at least 3 months and to continue Eliquis. Of note, the patient may have been mildly dehydrated on admission given elevated BUN and creatinine. 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 His blood pressure medications were held throughout admission and his blood pressure was frequently at goal, so his amlodipine was discontinued, however, he was reinitiated on losartan on discharge. A complete 10- point review of systems was performed and the patient had denied all symptoms. PHYSICAL EXAMINATION: Vital Signs: Afebrile, heart rate 60s, blood pressure 151/88, respiratory rate 19, oxygen saturation 98% on room air. In general, he is a well-appearing man, in no acute distress. He is alert and interactive. JVD is normal. HEENT with okay, clear moist mucous membranes. Heart: Irregularly irregular. No murmurs, gallops, or rubs. Lungs: Clear to auscultation bilaterally. Abdomen is soft, nontender, nondistended. Extremities: Warm and well perfused without evidence of edema. Neuro Exam: Speech is fluent, answers questions appropriately. Cranial nerves II through XII intact. Strength 5/5 in all extremities. Gait: Normal. PERTINENT STUDIES AND LABS: CBC is unremarkable. BMP notable for creatinine 1.46, decreased to normal by day of discharge. Troponin 0.07, decreased to 0.06. Vitamin B12 over 1450. TSH 1.61. UA clear. Brain CT with no acute intracranial pathology. Chronic small-vessel ischemic changes noted. Chest x-ray with no evidence for acute intrathoracic disease. Brain MRI without acute intracranial abnormality. Age-related atrophy and moderate- to-severe chronic small-vessel ischemic disease, advanced compared to prior study. Transthoracic echocardiogram: LV with cavity size normal. Wall thickness is moderately increased. Systolic function is normal with EF of 50% to 55%. Wall motion is normal without regional wall motion abnormalities. LA is severely dilated. RV with systolic function low normal. Atrial septum without a PFO demonstrated by Doppler. Mitral valve with mild regurgitation and aortic valve without evidence of stenosis, but with mild regurgitation. There is no significant pericardial effusion. Compared to the study taken in 2017, there is no change. Head CTA with atherosclerosis, but no internal carotid artery stenosis by NASCET criteria. No aneurysm, vascular malformation, occlusion, or stenosis of the visualized intracranial circulation. DISCHARGE PLAN: The patient will be discharged home to follow up with his primary care physician as well as his coating inspector, Dr. Wilkins. He was educated on signs of bleeding given initiation of aspirin during hospitalization in addition to his home Eliquis. His other home medication changes are notable for discontinuation of his calcium channel flex and beta flex. He was educated to check his blood pressures at home and bring a log of these to his primary care physician and coating inspector for further blood pressure medication titration. He will follow up with his outpatient coating inspector for further atrial fibrillation management. Dr. Wilkins has been made aware that the patient had pauses on beta flex while asleep that were asymptomatic. The patient also did have mild troponin elevation, but no chest pain, EKG changes, or focal abnormalities on his echocardiogram as noted above. The patient was educated on a heart-healthy diet, low in processed food , and to resume activity as tolerated. He was educated on return precautions, which include but are not limited to signs of bleeding or recurrence of focal neurologic symptoms. DISPOSITION: To home. CONDITION: Good. TIME SPENT: Approximately 60 minutes were spent on the discharge of this patient, more than half of which was spent with care coordination at the bedside for interview and exam. [id number]/[facility] #: [id number] SASHA
== END 2019-05-09 13:12 | disposition home or self-care (01) ==
LOC: ED 14:21 → MEDTELE 16:21 → ICU 22:46
PROVIDERS: ADMIT Internal Medicine; ATTEND Internal Medicine
DX: G45.9 Transient cerebral ischemic attack, unspecified (principal); I48.91 Unspecified atrial fibrillation; R41.0 Disorientation, unspecified; R53.83 Other fatigue; E78.00 Pure hypercholesterolemia, unspecified; I10 Essential (primary) hypertension; N40.0 Benign prostatic hyperplasia without lower urinary tract symptoms; Z86.73 Personal history of transient ischemic attack (TIA), and cerebral infarction without residual deficits; Z87.891 Personal history of nicotine dependence; Z79.82 Long term (current) use of aspirin; Z79.899 Other long term (current) drug therapy
CPT/HCPCS: 36415; 70450; 70496; 70498; 70551; 71045; 80048; 80053; 80061; 81003; 82607; 83605; 84443; 84484; 85025; 85610; 85730; 87641; 93005; 93306; 96360; 96361; 99285; A9270-GY; G0378; Q9967

== ENCOUNTER 2019-06-17 08:55 | Emergency (ER) | payer MEDICARE, BC ==
--- OUTSIDE RECORDS SUMMARY | 2019-06-17 09:03 | XMS REPORT | Continuity of Care Document ---
:1940 External Reference #:[id number] Author Name Mack Winchester M.D. (transmitted by agent of provider Vianey Goddard ) Address [address] [facility] [address] [place] [address] Care Team Providers Name Role Phone Ilana Kathleen MD - Internal Care Team Information Contracting Specialist Medicine Problems Description No Information Available Social History Type Date Description Comments Sex Unknown Tobacco Use Start: Unknown End: Former Cigarette Unknown Smoker ETOH Use Currently consumes 1-2 glasses of wine alcohol or beer daily Tobacco Use Start: Unknown End: Patient is a former quit in the early Unknown smoker , smoked on and off since age 16, 1PPD Recreational Drug Use Denies Drug Use Tobacco Use Start: Unknown Cumulative 25 pack years Smoking Status Reviewed: 12/03/17 Cumulative 25 pack years Exercise Type/Frequency Exercises regularly walking, weight lifting, hunting/fishing. Very active lifestyle Allergies, Adverse Reactions, Alerts Description No Known Drug Allergies Medications Active Medications SIG Qnty Indications Ordering Date Provider Atenolol 1 by mouth bid 90tabs Other Ordering 09/07/2017 25mg Tablets Provider Allopurinol take 1 tab by mouth 90tabs M10.9 Ladyofigabrielle Sharif, 05/07/2017 100mg daily DENTAL LABORATORY MANAGER Tablets Percocet 1 by mouth every 30tabs Brandon Rico, 04/10/2017 5-325mg 4-6 hours as needed M.DShahid Tablets pain Aspirin 1 by mouth every Arjun Bingham M.D. 05/14/2014 81mg Tablets day Diazepam 1/4- 1/2 tab q hs Unknown 5mg Tablets prn Diovan 2 by mouth every Unknown 160mg Tablets day Tylenol Extra 2 by mouth as Unknown Strength needed 500mg Tablets Viagra by mouth 0.5 or 1 Unknown 100mg Tablets tab 1h before intercourse Cialis 1 by mouth 1 hour Unknown 5mg Tablets before intercourse as needed Pravastatin Sodium 2 by mouth every Unknown day 40mg Tablets Eliquis 1 by mouth twice a Unknown 5mg Tablets day Vitamin B-12 ER 1 by mouth every Unknown day 1000mcg Tablets ER Metoprolol Tartrate 1 by mouth twice a Unknown day 50mg Tablets Claritin 1 tab daily as Unknown 10mg needed Capsules Omeprazole 1 by mouth every Unknown 20mg day Capsules DR Medications Administered in Office Medication SIG Qnty Indications Ordering Provider Date Depomedrol 40MG Sixto Thompson M.D. 07/29/2011 Injection Depomedrol 40MG Sixto Thompson M.D. 12/29/2010 Injection Depomedrol 40MG Sixto Thompson M.D. 10/17/2010 Injection Depomedrol 40MG Kraig Ayala M.D. 06/24/2010 Injection Depomedrol 40MG DEV Blanco 05/06/2010 Injection Depomedrol 20MG Sixto Thompson M.D. 02/14/2010 Injection Immunizations Description No Information Available Vital Signs Date Vital Result Comment 12/03/2017 10:18am Height 71 inches 5'11" Weight 193.25 lb Heart Rate 72 /min BP Systolic Sitting 132 mmHg BP Diastolic Sitting 76 mmHg Pain Level 0 O2 % BldC Oximetry 96 % BMI (Body Mass Index) 26.9 kg/m2 09/07/2017 10:43am Height 71 inches 5'11" Weight 189.50 lb Heart Rate 76 /min BP Systolic Sitting 137 mmHg BP Diastolic Sitting 89 mmHg Respiratory Rate 14 /min Pain Level 0 BMI (Body Mass Index) 26.4 kg/m2 Results Description No Information Available Procedures Description No Information Available Medical Devices Description No Information Available Encounters Description No Information Available Assessments Description No Information Available Plan of Treatment 12/03/2017 - Luis A Sharif, FNPM10.9 Gout, unspecifiedComments:We will stop colchicine now.You have been stable for over 6 month.Please get labs todayWe will continue on Allopurinol 100 mg/day If uric acid is higher than 7 we will need to increase the AllopurinoldoseIf you are stable will have Dr. Kathleen to take over your care fr gout.Z79.899 Other assisted (current) drug therapy Functional Status Description No Information Available Mental Status Description No Information Available Referrals Description No Information Available
--- OUTSIDE RECORDS SUMMARY | 2019-06-17 09:03 | XMS REPORT | Summary of Care ---
:1940 Author Organization [facility] Address [address] [facility] [place] [address] Care Team Providers Name Role Phone Ilana Kathleen MD Primary Care Provider Reason for Visit Reason Comments Follow Up Pt. in for a follow up on Atrial Flutter. Holter done on 05/03/19. Reports still not feeling "right" Reports decrease energy. Encounter Details Date Type Department Care Team Description 06/05/2019 Office Visit Shekhar Pizano [facility], Atrial flutter, unspecified type (HCC) (Primary Dx); Cardiology MD Ronal Persistent atrial fibrillation; [address] RBBB (right bundle branch block); [place] [address] [place] [address] TIA (transient ischemic attack); [phone] Essential hypertension Allergies Active Allergy Reactions Severity Noted Date Comments Atorvastatin Other 06/21/2017 Elevated CPK, okay on pravastatin Nifedipine Unknown Reaction 06/21/2017 Patanase Unknown Reaction 06/21/2017 documented as of this encounter (statuses as of 06/06/2019) Medications Medication Sig Dispensed Refills Start Date End Date Status diazepam (VALIUM) 5 MG Take 5 mg by 0 Active Oral Tab mouth DAILY NEEDED for anxiety. colchicine (COLSALIDE) Take 0.6 mg by 0 Active 0.6 MG Oral Tab mouth DAILY. allopurinol (ZYLOPRIM) Take 100 mg by 0 Active 100 MG Oral Tab mouth DAILY. Sildenafil Citrate Take by mouth. 0 Active (VIAGRA) 100 MG Oral Tab acetaminophen (TYLENOL) Take 500 mg by 0 Active 500 MG Oral Tab mouth EVERY SIX HOURS NEEDED for Pain. hydrocortisone valerate 1 Appl by 0 Active 0.2 % Apply externally Topical route Cream NEEDED. Pravastatin Sodium 80 MG Take by mouth 0 Active Oral Tab DAILY. OXYcodone-acetaminophen Take 1 Tab by 0 Active (PERCOCET) 5-325 MG Oral mouth EVERY FOUR Tab HOURS NEEDED for Pain. Tadalafil (CIALIS) 20 MG Take by mouth 0 Active Oral Tab NEEDED. apixaban (ELIQUIS) 5 MG Take 5 mg by 0 Active Oral Tab mouth TWICE DAILY. Omeprazole delayed rel Take 20 mg by 0 Active cap 20 MG Oral CAPSULE mouth DAILY. DELAYED RELEASE Cyanocobalamin (VITAMIN Take by mouth. 0 Active B-12) 1000 MCG Oral Tab Losartan Potassium 100 Take 100 mg by 0 Active MG Oral Tab mouth DAILY. Aspirin 81 MG Oral Tab Take 1 Tab by 30 Tab 0 05/09/2019 Active mouth DAILY. amLodipine (NORVASC) 5 Take 1 Tab by 90 Tab 3 06/05/2019 Active MG Oral TabIndications: mouth DAILY. Essential hypertension documented as of this encounter (statuses as of 06/06/2019) Active Problems Problem Noted Date Atrial flutter 06/21/2017 Chronic systolic congestive heart failure 06/21/2017 Gout 06/21/2017 TIA (transient ischemic attack) 06/21/2017 documented as of this encounter (statuses as of 06/06/2019) Social History Tobacco Use Types Packs/Day Years Used Date Former Smoker Cigarettes 1.5 25 Quit: 06/21/1980 Smokeless Tobacco: Never Used Alcohol Use Drinks/Week oz/Week Comments Yes 14 Glasses of wine 14.0 Sex Assigned at Date Recorded Not on file Job Start Date Occupation Industry Not on file Not on file Not on file Travel History Travel Start Travel End No recent travel history available. documented as of this encounter Last Filed Vital Signs Vital Sign Reading Time Taken Comments Blood Pressure 122/92 06/05/2019 1:13 PM EDT Pulse 74 06/05/2019 1:13 PM EDT irregular. Temperature - - Respiratory Rate - - Oxygen Saturation - - Inhaled Oxygen Concentration - - Weight 79.4 kg (175 lb) 06/05/2019 1:13 PM EDT Height 180.3 cm (5' 11") 06/05/2019 1:13 PM EDT Body Mass Index 24.41 06/05/2019 1:13 PM EDT documented in this encounter Patient Instructions Patient InstructionsRonal Wilkins MD - 06/05/2019 1:20 PM EDT RESTART amlodipine 5mg once every evening. No other medication changes today. Schedule a APPLE and cardioversion in [place] sometime in the next few weeks. Follow up with me after the procedure (in about 6 weeks). documented in this encounter Progress Notes Ronal Wilkins MD - 06/05/2019 1:20 PM EDT [facility] Note Patient: Louis Beckham Date of : 1940 Date of Service: 06/05/2019 REFERRING PRACTITIONER: Ilana Kathleen PRIMARY CARE PROVIDER: Ilana Kathleen Chief Complaint: Chief Complaint Patient presents with Follow Up Pt. in for a follow up on Atrial Flutter. Holter done on 05/03/19. Reports still not feeling "right" Reports decrease energy. History of Present Illness: We had the pleasure of seeing Louis Beckham today at the [facility] Office. 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 Dr. Gutierrezabimbolalars returns to cardiology clinic today for close f/u of his Afib/ flutter. Since his last visit with me a few weeks ago, he reports feeling about the same. He continues to feel that his energy levels are worse than his prior baseline a few months ago. No significant bleeding from the Eliquis and aspirin but does bleed easily when he nicks himself. Also has some easy bruising. No chest pains/pressure or limiting dyspnea. Denies any palpitations , lightheadedness, or syncope. No orthopnea, paroxysmal dyspnea, or lower extremity edema. BPs at home running high in the AM (sometimes as high as 180/100 mmHg). Patient Active Problem List Diagnosis Atrial flutter (HCC) Chronic systolic congestive heart failure (HCC) Gout TIA (transient ischemic attack) Past Medical History: Diagnosis Date Atrial flutter (HCC) 06/21/2017 Chronic systolic congestive heart failure (HCC) 06/21/2017 Gout 06/21/2017 TIA (transient ischemic attack) 06/21/2017 No past surgical history on file. Allergies Allergen Reactions Lipitor [Atorvastatin] Other Elevated CPK, okay on pravastatin Nifedipine Unknown Reaction Patanase Unknown Reaction Current Outpatient Medications Medication acetaminophen (TYLENOL) 500 MG Oral Tab allopurinol (ZYLOPRIM) 100 MG Oral Tab apixaban (ELIQUIS) 5 MG Oral Tab Aspirin 81 MG Oral Tab colchicine (COLSALIDE) 0.6 MG Oral Tab Cyanocobalamin (VITAMIN B-12) 1000 MCG Oral Tab diazepam (VALIUM) 5 MG Oral Tab hydrocortisone valerate 0.2 % Apply externally Cream Losartan Potassium 100 MG Oral Tab Omeprazole delayed rel cap 20 MG Oral CAPSULE DELAYED RELEASE OXYcodone-acetaminophen (PERCOCET) 5-325 MG Oral Tab Pravastatin Sodium 80 MG Oral Tab Sildenafil Citrate (VIAGRA) 100 MG Oral Tab Tadalafil (CIALIS) 20 MG Oral Tab Family History Problem Relation Age of Onset Dementia Mother Social History Socioeconomic History Marital status: Unknown Spouse name: Not on file Number of children: Not on file Years of education: Not on file Highest education level: Not on file Occupational History Not on file Social Needs Financial resource strain: Not on file Food insecurity: Worry: Not on file Inability: Not on file Transportation needs: Medical: Not on file Non-medical: Not on file Tobacco Use Smoking status: Former Smoker Packs/day: 1.50 Years: 25.00 Pack years: 37.50 Types: Cigarettes Last attempt to quit: 06/21/1980 Years since quittin.9 Smokeless tobacco: Never Used Substance and Sexual Activity Alcohol use: Yes Alcohol/week: 14.0 standard drinks Types: 14 Glasses of wine per week Drug use: No Sexual activity: Not on file Lifestyle Physical activity: Days per week: Not on file Minutes per session: Not on file Stress: Not on file Relationships Social connections: Talks on phone: Not on file Gets together: Not on file Attends nondenominational service: Not on file Active member of club or organization: Not on file Attends meetings of clubs or organizations: Not on file Relationship status: Not on file Intimate partner violence: Fear of current or ex partner: Not on file Emotionally abused: Not on file Physically abused: Not on file Forced sexual activity: Not on file Other Topics Concern Not on file 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 Review of Systems - Negative except as noted in HPI. Physical Exam: Vitals: 06/05/19 1313 BP: (!) 122/92 BP Location: Right arm Patient Position: Sitting Pulse: 74 Weight: 175 lb (79.4 kg) Height: 5' 11" (1.803 m) Body mass index is 24.41 kg/m. General: Well nourished, pleasant, alert 79-y.o. male in NAD HEENT: anicteric, MMM, no E/E OP, conj pink Neck: JVP approx 6-7 cm above RA, no carotid bruits or LAD CV: Irreg irreg, normal s1/s2, no appreciable murmurs, rubs, or gallops Pulm: CTA bilaterally without wheezes, rhonchi, or rales. No increased work of breathing. Abd: soft, NT, ND, +BS. No appreciable pulsatile masses or bruits. Ext: no sig lower extremity edema. No cyanosis, no cords, redness, or warmth, 2 + distal pulses Neuro: no gross focal deficits but full exam not performed. Skin: No visible lesions. Labs: Lab Results Component Value Date NA 142 06/05/2019 K 4.1 06/05/2019 CL 105 06/05/2019 CO2 27 06/05/2019 GLUCOSE 81 06/05/2019 BUN 25 (H) 06/05/2019 CREATININE 1.1 06/05/2019 CALCIUM 9.3 06/05/2019 EGFR >60 06/05/2019 No results found for: BNP No results found for: CHOL, TRIG, HDL, LDL, LDLHDLRATIO, CHOLHDLRATIO Cardiac Studies: TTE at [facility] 05/08/2019: Moderate LVH with LVEF 50-55%. No RWMAs Low normal RV systolic function Severely dilated LA No PFO by saline contrast bubble study Mild MR, AR, TR Holter Monitor 05/03/2019: FINDINGS: 1. The rhythm throughout the 24-hour recording was atrial fibrillation, with a minimum heart rate of 43 beats per minute, average heart rate of 77 beats per minute, and maximum heart rate of 127 beats per minute. Less than 1% of the recording was spent in tachycardia and 2% was spent in bradycardia. 2. A total of 75 pauses greater than 2 seconds were seen with the majority of these occurring during sleep hours. The longest was 4 seconds and all pauses were apparently asymptomatic. Of note, pauses less than 5 seconds in the setting of atrial fibrillation are not considered to be significant. 3. Rare, isolated ventricular ectopy was seen, totaling less than 1% of the recording. 4. No patient diary events were recorded. CONCLUSION: 24-hour Holter monitor recording reveals atrial fibrillation with adequate heart rate control and occasional but nonsignificant pauses as described above. TTE 07/16/17: FINAL IMPRESSION: Normal left ventricular chamber size Mildly increased left ventricular wall thickness Normal LV systolic function with no regional wall motion abnormalities and estimated LV EF 55-60%. Normal LA, RA and RV size and function. Trileaflet aortic valve with mild regurgitation The aortic root is mildly dilated measuring 3.81 cm (1.87 cm/m2) No significant valvular stenosis No pericardial effusion. Pulmonary arterial systolic pressure cannot be accurately estimated from this study. APPLE at [facility] 05/25/17: -Normal LV size with mild concentric LVH -Mildly reduced LVEF 45-50% -Mild aortic regurgitation. 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 ICD-9-CM ICD-10-CM 1. Atrial flutter, unspecified type (HCC) 427.32 I48.92 2. Persistent atrial fibrillation 427.31 I48.19 BASIC METABOLIC PANEL MAGNESIUM LEVEL CBC NO DIFFERENTIAL MAGNESIUM LEVEL CBC NO DIFFERENTIAL BASIC METABOLIC PANEL 3. RBBB (right bundle branch block) 426.4 I45.10 4. TIA (transient ischemic attack) 435.9 G45.9 5. Essential hypertension 401.9 I10 amLodipine (NORVASC) 5 MG Oral Tab 1. Paroxysmal, Symptomatic Atrial Fibrillation/Flutter: The etiology of atrial fib/flutter in this patient is most likely related to age and HTN as well as possible EtOH (has 2-3 drinks per day). The heart-rate is currently well controlled on the current medical regimen. This patient's [id number] score is 5. I recommend the following treatment strategy and medical regimen for this patient: Stroke prevention: Based on the patient's [id number] risk profile, I recommend continuing OACtherapy with Eliquis. I agree with neurology that we should continue aspirin for at least 3 months given his TIA despite adequate Eliquis anticoagulation. Despite the higher bleeding risk, it may be prudent to continue the aspirin lifelong in this very high risk patient who has had 3 recurrent neurologic events. Rate control: Now off metoprolol, with normal heart rates in Afib. This implies a degree of AVnode dysfunction. Rhythm control: I believe that his vague symptoms in the past few months are related to the atrial fibrillation, and I think that we should plan to pursue a rhythm control strategy with him. Nowthat he's about a month out from his most recent TIA, I think it's reasonable for us to pursue a APPLE/CV. I'm doing the APPLE given his recurrent TIAs just to be sure there is no evidence of LA/RUSLAN thrombus. If the cardioversion doesn't "stick," then we'll have to consider antiarrhythmics versus referral to EP. Further workup/management issues: I again discussed the importance of limiting EtOH intake and continuing regular exercise and maintaining a healthy weight. He doesn't have any significant symptoms suggestive of NITISH. 2. Resolved Mild Cardiomyopathy (Presumably Tachy-Mediated): Recommendations are as follows: Most recent LV function: 50-55% (assessed on 05/08/19 by [facility] echo). Beta-flex: Off metoprolol as above. MY-inhibitor or ARB: Cont losartan. Aldosterone Antagonist: No need at this point. 3. HTN: BP control hasn't been as good off metoprolol and amlodipine, and he's been having some highAM BPs at home. Cont losartan. I'm adding back amlodipine 5mg daily and I instructed him to take it in the evening which may help his AM BPs more. Thank you for allowing me to participate in the care of Louis Beckham. We will plan on f/u in our office in ~6 weeks (after his CV). If you have any questions or concerns please feel free to call our office at . Ronal Wilkins MD, 06/06/2019, 08:04 This note was created using my previous note as a template; changes were made where appropriate, andall information in the current note is up to date to the best of my knowledge.Electronically signed by Ronal Wilkins MD at 2018 8:10 AM EDTdocumented in this encounter Plan of Treatment Date Type Specialty Care Team Description 07/27/2019 Office Visit Cardiology Ronal Wilkins MD [address] [place] [address] [phone] 01/17/2020 [place] [address] [place] [address] [phone] Name Type Priority Associated Diagnoses Order Schedule CASE REQUEST CATH Procedures Routine One Time for 1 LAB Occurrences starting 06/06/2019 until 06/06/2019 Health Maintenance Due Date Last Done Comments MEDICARE ANNUAL WELLNESS VISIT 1940 DEPRESSION SCREENING 1951 HIV SCREENING 1954 ZOSTER IMMUNIZATION SERIES (1 of 2) 1989 FALL RISK ASSESSMENT 2004 PNEUMOCOCCAL 65+YRS (1 of 2 - 2004 PCV13) INFLUENZA VACCINE (#1) 2019 HPV IMMUNIZATION SERIES Aged Out No longer eligible based on patient's age to complete this topic MENINGOCOCCAL VACCINE IMM Aged Out No longer eligible based on patient's age to complete this topic documented as of this encounter Procedures Procedure Name Priority Date/Time Associated Diagnosis Comments MAGNESIUM LEVEL Routine 06/05/2019 1:58 Persistent atrial Results for this PM EDT fibrillation procedure are in the results section. BASIC METABOLIC PANEL Routine 06/05/2019 1:58 Persistent atrial Results for this PM EDT fibrillation procedure are in the results section. CBC NO DIFFERENTIAL Routine 06/05/2019 1:58 Persistent atrial Results for this PM EDT fibrillation procedure are in the results section. documented in this encounter Results CBC NO DIFFERENTIAL (06/05/2019 1:58 PM EDT) WBC Count 6.08Comment: 4.23 - 9.07 [facility] Methodology was K/uL [facility] changed 08/11/2018. Please note updated reference range and units. RBC Count 5.54 4.30 - 5.89 [facility] M/UL [facility] Hemoglobin 16.4 13.7 - 17.5 [facility] g/dL [facility] Hematocrit 51.9 (H) 40.1 - 51.0 % [facility] MCV 93.7 (H) 79.0 - 92.2 [facility] FL [facility] MCH 29.6 25.7 - 32.2 [facility] PG [facility] MCHC 31.6 (L) 32.3 - 36.5 [facility] g/dL [facility] Platelet Count 157 (L) 163 - 337 [facility] K/uL [facility] MPV 10.0 9.4 - 12.4 [facility] RDW 16.3 (H) 11.6 - 14.4 % [facility] Specimen Blood - Blood specimen (specimen) Performing Organization Address [facility] Phone Number [facility] [address] [place] [address] MAGNESIUM LEVEL (06/05/2019 1:58 PM EDT) Magnesium 2.1 1.6 - 2.3 MG/DL [facility] Specimen Blood - Blood specimen (specimen) Performing Organization Address [facility] Phone Number [facility] [address] [place] [address] [phone] BASIC METABOLIC PANEL (06/05/2019 1:58 PM EDT) Glucose 81 70 - 99 mg/dl [facility] BUN 25 (H) 9 - 20 mg/dl [facility] Creatinine 1.1 0.8 - 1.5 mg/dl [facility] Sodium 142 134 - 145 mmol/L [facility] Potassium 4.1 3.5 - 5.1 mmol/L [facility] Chloride 105 98 - 107 mmol/L [facility] CO2 27 22 - 30 mmol/L [facility] Calcium 9.3 8.3 - 10.1 mg/dl [facility] eGFR >60 See Interpretation [facility] Comment: Below ml/min/1.73ml GROUP Estimated GFR Interpretation: Sq LABORATORY Above 60ml/min/1.73m2 = Normal Renal Function 30-59 ml/min/1.73m2 = Stage 3 Chronic Kidney Disease 15-29 ml/min/1.73m2 = Stage 4 Chronic Kidney Disease Less than 15 ml/min/1.73m2 = Stage 5 Chronic Kidney Disease The GFR value is calculated using the Modification of Diet in Renal Disease ( MDRD) Study Equation which can be found at: https://www.kidney.org/content/dfdt-omkez-xmwvewbv BUN/Creatinine 23 (H) 6 - 22 RATIO [facility]ATORY Anion Gap 10 3 - 11 mmol/L [facility] Specimen Blood - Blood specimen (specimen) Performing Organization Address City/State/Zipcode Phone Number [facility] [address] [place] [address] [phone] documented in this encounter Visit Diagnoses Diagnosis Atrial flutter, unspecified type (HCC) - Primary Persistent atrial fibrillation Atrial fibrillation RBBB (right bundle branch block) Right bundle branch block TIA (transient ischemic attack) Unspecified transient cerebral ischemia Essential hypertension Unspecified essential hypertension documented in this encounter Insurance Payer Benefit Plan / Subscriber ID Effective Dates Phone Address Type Group MEDICARE MEDICARE PART A & xxxxxxxxxxx 2004-Present Medicare B [employer] JHONATAN GASPAR xxxxxxxxxxxx 2012-Present Jhonatan SANTANA PPO documented as of this encounter
--- OUTSIDE RECORDS SUMMARY | 2019-06-17 09:03 | XMS REPORT | Summary of Care ---
:1940 Author Organization [facility] Address [address] [facility] [place] [address] Care Team Providers Name Role Phone Ilana Kathleen MD Primary Care Provider Reason for Visit Reason Comments Follow Up Pt. in for a Hospital follow up. Reports TIA on 05/08/19. Pt. reports he was unable to find the Correct "Words" Medication Management Pt. report Amlodopine and Metoprolol d/c by [facility]. Encounter Details Date Type Department Care Team Description 05/15/2019 Office Visit Shekhar Hamtic, Atrial flutter, unspecified type (HCC) (Primary Dx); Cardiology MD Ronal Paroxysmal atrial fibrillation (HCC); [address] RBBB (right bundle branch block); [place] [address] [place] [address] TIA (transient ischemic attack) [phone] Allergies Active Allergy Reactions Severity Noted Date Comments Atorvastatin Other 06/21/2017 Elevated CPK, okay on pravastatin Nifedipine Unknown Reaction 06/21/2017 Patanase Unknown Reaction 06/21/2017 documented as of this encounter (statuses as of 05/15/2019) Medications Medication Sig Dispensed Refills Start Date End Date Status diazepam (VALIUM) 5 Take 5 mg by 0 Active MG Oral Tab mouth DAILY NEEDED for anxiety. colchicine Take 0.6 mg 0 Active (COLSALIDE) 0.6 MG by mouth Oral Tab DAILY. allopurinol Take 100 mg 0 Active (ZYLOPRIM) 100 MG by mouth Oral Tab DAILY. Sildenafil Citrate Take by 0 Active (VIAGRA) 100 MG Oral mouth. Tab acetaminophen Take 500 mg 0 Active (TYLENOL) 500 MG by mouth Oral Tab EVERY SIX HOURS NEEDED for Pain. hydrocortisone 1 Appl by 0 Active valerate 0.2 % Apply Topical route externally Cream NEEDED. Pravastatin Sodium Take by 0 Active 80 MG Oral Tab mouth DAILY. OXYcodone-acetaminop Take 1 Tab by 0 Active hen (PERCOCET) 5-325 mouth EVERY MG Oral Tab FOUR HOURS NEEDED for Pain. Tadalafil (CIALIS) Take by 0 Active 20 MG Oral Tab mouth NEEDED. apixaban (ELIQUIS) 5 Take 5 mg by 0 Active MG Oral Tab mouth TWICE DAILY. Omeprazole delayed Take 20 mg by 0 Active rel cap 20 MG Oral mouth DAILY. CAPSULE DELAYED RELEASE Cyanocobalamin Take by 0 Active (VITAMIN B-12) 1000 mouth. MCG Oral Tab Losartan Potassium Take 100 mg 0 Active 100 MG Oral Tab by mouth DAILY. Aspirin 81 MG Oral Take 1 Tab by 30 Tab 0 05/09/2019 Active Tab mouth DAILY. amLodipine (NORVASC) Take 5 mg by 0 05/15/2019 Discontinued 5 MG Oral Tab mouth DAILY. metoprolol Take 1 Tab by 60 Tab 0 05/09/2019 05/15/2019 Discontinued (LOPRESSOR) 25 MG mouth TWICE Oral Tab DAILY. documented as of this encounter (statuses as of 05/15/2019) Active Problems Problem Noted Date Atrial flutter 06/21/2017 Chronic systolic congestive heart failure 06/21/2017 Gout 06/21/2017 TIA (transient ischemic attack) 06/21/2017 documented as of this encounter (statuses as of 05/15/2019) Social History Tobacco Use Types Packs/Day Years [...] Sign Reading Time Taken Comments Blood Pressure 142/80 05/15/2019 10:54 AM EDT Pulse 72 05/15/2019 10:54 AM EDT Temperature - - Respiratory Rate - - Oxygen Saturation - - Inhaled Oxygen Concentration - - Weight 80.3 kg (177 lb) 05/15/2019 10:54 AM EDT Height 180.3 cm (5' 11") 05/15/2019 10:54 AM EDT Body Mass Index 24.69 05/15/2019 10:54 AM EDT documented in this encounter Patient Instructions Patient InstructionsMcRonal Domingo MD - 05/15/2019 10:40 AM EDT No medication changes today. Continue to monitor your blood pressure and heart rate at home. As we discussed, we'll plan to try doing a APPLE and cardioversion in another month or so. We'll plan on follow up with me in ~4 weeks and decide on cardioversion at that time. documented in this encounter Progress Notes Ronal Wilkins MD - 05/15/2019 10:40 AM EDT [facility] Note Patient: Louis Beckham Date of : 1940 Date of Service: 05/15/2019 REFERRING PRACTITIONER: Ilana Kathleen PRIMARY CARE PROVIDER: Ilana Kathleen Chief Complaint: Chief Complaint Patient presents with Follow Up Pt. in for a Hospital follow up. Reports TIA on 05/08/19. Pt. reports he was unable to find the Correct "Words" Medication Management Pt. report Amlodopine and Metoprolol d/c by [facility]. History of Present Illness: We had the pleasure of seeing Louis Beckham today at the [facility] Cardiology Office. 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 He presented there with 10-20 minutes of word finding difficulty and was diagnosed with a TIA. He was seen by neuro and they recommended adding aspirin to his Eliquis for at least 3months. He was also monitored on tele and noted to have some fairly significant pauses up to 3 seconds while on metoprolol, so that medication was discontinued on d/c. He was also seen by Dr. Ryan (whom I spoke with while the patient was admitted), and he just recommended f/u with me. Of note, he also had his amlodipine stopped in the hospital d/t well controlled BPs off it. From a symptom standpoint now, Dr. 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 We have felt that those vague symptoms may have been related to his Afib/flutter. No chest pains/pressure or any significant dyspnea. No recurrence of his neurologic symptoms since hospital discharge. No bleeding issues on Eliquis and ASA. Denies any palpitations, lightheadedness, or syncope. No orthopnea, paroxysmal dyspnea, or lower extremity edema. BPs at home have been running mostly 130s-140s/80s off the amlodipine and metoprolol. Patient Active Problem List Diagnosis Atrial flutter [...] file Gets together: Not on file Attends zoroastrianism service: Not on file Active member of [...] as noted in HPI. Physical Exam: Vitals: 05/15/19 1054 BP: 142/80 BP Location: Left arm Patient Position: Sitting Pulse: 72 Weight: 177 lb (80.3 kg) Height: 5' 11" (1.803 m) Body mass index is 24.69 kg/m. General: Well nourished, pleasant, alert 79-y.o. male in NAD HEENT: anicteric, MMM, no E/E OP, conj pink Neck: JVP approx 7-8 cm above RA, no carotid bruits or [...] not performed. Skin: No visible lesions. Labs: No results found for: NA, K, CL, CO2, GLUCOSE, BUN, CREATININE, CALCIUM, TP, ALBUMIN, AST, ALT, ALK,TBILI, EGFR No results found for: BNP No results found for: CHOL, TRIG, HDL, LDL, LDLHDLRATIO, CHOLHDLRATIO Cardiac Studies: TTE at [facility] 05/08/2019: Moderate LVH with LVEF 50-55%. No [...] accurately estimated from this study. APPLE at [facility] 05/25/17: -Normal LV size with mild concentric LVH -Mildly reduced LVEF 45-50% -Mild aortic regurgitation. 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 ICD-9-CM ICD-10-CM 1. Atrial flutter, unspecified type (HCC) 427.32 I48.92 2. Paroxysmal atrial fibrillation (HCC) 427.31 I48.0 3. RBBB (right bundle branch block) 426.4 I45.10 4. TIA (transient ischemic attack) 435.9 G45.9 1. Paroxysmal, Symptomatic Atrial Fibrillation/Flutter: The etiology of atrial fib/flutter in this patient is most likely related to age and HTN as well as possible EtOH (has 2-3 drinks per day). The heart-rate is currently well controlled on the current medical regimen. This patient's [id number] score is 5. I recommend the following treatment strategy and medical regimen for this patient: Stroke prevention: Based on the patient's [id number] risk profile, I recommend continuing OACtherapy with [...] pursue a rhythm control strategy with him. Since he just had a TIA, I'm holding off on repeating a cardioversion and will plan to see him in ~ 1 month. At that visit, assuming he remains in AF, then I'll set him up for a APPLE/CV. I'm doing the TEEgiven his recurrent TIAs just to be sure [...] LV function: 50-55% (assessed on 05/08/19 by [facility] echo). Beta-flex: Cont metoprolol. MY-inhibitor or ARB: Cont losartan. Aldosterone Antagonist: No need at this point. 3. HTN: BP control hasn't been as good off metoprolol and amlodipine. If BP consistently > 140/90 then I'd recommend adding back amlodipine. We've been avoiding diuretics d/t his gout. Thank you for allowing me to participate in the care of Louis Beckham. We will plan on f/u in our office in 4 weeks to decided on APPLE/CV. If you have any questions or concerns please feel free to call our office at . Ronal Wilkins MD, 05/15/2019, 12:48 This note was created using my previous note as a template; changes were made where appropriate, andall information in the current note is up to date to the best of my knowledge.Electronically signed by Ronal Wilkins MD at 2018 12:49 PM EDTdocumented in this encounter Plan of Treatment Date Type Specialty Care Team Description 06/05/2019 Office Visit Cardiology Ronal Wilkins MD [address] [place] [id number] 01/17/2020 Office Visit Cardiology Ronal Wilkins MD [address] [place] [address] Health Maintenance Due Date Last Done Comments [...] this topic documented as of this encounter Results Not on filedocumented in this encounter Visit Diagnoses Diagnosis Atrial flutter, unspecified type (HCC) - Primary Paroxysmal atrial fibrillation (HCC) Atrial fibrillation RBBB (right bundle branch block) Right bundle branch block TIA (transient ischemic attack) Unspecified transient cerebral ischemia documented in this encounter Insurance Payer Benefit Plan / Subscriber ID Effective Dates Phone Address Type Group [employer] xxxxxxxxxxxx 2012-Present [employer] PPO documented as of this encounter
[2019-06-17 09:08] VITALS: BP 137/87
--- NOTE | 2019-06-17 09:21 | UC ---
Throat Pain/Nasal Hunter HPI - HPI Summary HPI Summary: started 3-[address] and congestion, turned into chest congestion and now coughing up green phlegm denies fever or chills, has tried no cough/cold meds so far - History of Current Complaint Chief Complaint: UCGeneralIllness Stated Complaint: COUGH CONGESTION Time Seen by Provider: 06/17/19 08:57 Hx Obtained From: Patient Onset/Duration: Gradual Onset Severity: Moderate Pain Intensity: 6 Cough: Productive Associated Signs & Symptoms: Positive: Hoarseness, Sinus Discomfort - congestion - Allergies/Home Medications Allergies/Adverse Reactions: Allergies Allergy/AdvReac Type Severity Reaction Status Date / Time tetracycline Allergy Rash Verified 06/17/19 09:08 PMH/Surg Hx/FS Hx/Imm Hx Previously Healthy: Yes Endocrine History: Dyslipidemia Cardiovascular History: Hypertension, Atrial Fibrillation Respiratory History: Other - seasonal allergy - Surgical History Surgical History: Yes Surgery Procedure, Year, and Place: Trigger finger surgeries: L thumb 2011, R middle finger 03/07/09, left middle finger 07/26/08, R little finger 05/06/08, R and L ring finger 10/14/06;. R knee arthroscopy 12/31/05,. Appendectomy;. LUMBAR SPINE SURGERY 15 YEARS AGO;. LEFT EYE, 15 YRS AGO - Family History Known Family History: Positive: Diabetes - Social History Occupation: Retired Lives: With Family Alcohol Use: Daily Alcohol Amount: 2 DRINKS Substance Use Type: None Smoking Status (MU): Former Smoker Amount Used/How Often: 1.5 PACKS A DAY Have You Smoked in the Last Year: No When Did the Patient Quit Smoking/Using Tobacco: 1987 - Immunization History Most Recent Influenza Vaccination: 2012 Most Recent Tetanus Shot: about 5 years ago Most Recent Pneumonia Vaccination: per Dr Epifanio Stanley, pneumonia vaccine given Review of Systems All Other Systems Reviewed And Are Negative: Yes Constitutional: Positive: Negative Skin: Positive: Negative. Negative: Rash ENT: Positive: Sore Throat, Sinus Congestion Respiratory: Positive: Cough Cardiovascular: Positive: Negative Gastrointestinal: Positive: Negative Neurological: Positive: Negative. Negative: Headache Psychological: Positive: Negative Is Patient Immunocompromised?: No Physical Exam Triage Information Reviewed: Yes Appearance: Well-Appearing, No Pain Distress, Well-Nourished Vital Signs: Initial Vital Signs Temp 98.4 F 06/17/19 09:03 Pulse 94 06/17/19 09:03 Resp 18 06/17/19 09:03 BP 137/87 06/17/19 09:03 Pulse Ox 96 06/17/19 09:03 Vital Signs Reviewed: Yes Eyes: Positive: Conjunctiva Clear ENT: Positive: Pharynx normal, Nasal congestion, Other - large amount white PND Neck exam: Normal Respiratory Exam: Normal Respiratory: Positive: Lungs clear, Other: - productive cough Cardiovascular Exam: Other - A-fib Neurological Exam: Normal Neurological: Positive: Alert Psychological Exam: Normal Skin Exam: Normal Throat Pain/Nasal Course/Dx - Differential Dx/Diagnosis Differential Diagnosis/HQI/PQRI: Sinusitis, Tonsillitis, URI, Other - bronchitis Provider Diagnosis: Bronchitis Discharge ED - Sign-Out/Discharge Documenting (check all that apply): Patient Departure All imaging exams completed and their final reports reviewed: No Studies - Discharge Plan Condition: Good Disposition: HOME Prescriptions: Azithromycin TAB* [Zithromax TAB (Z-VANCE) 250 mg #6 tabs] 2 tab PO .TODAY, THEN 1 DAILY #1 vance Patient Education Materials: Acute Bronchitis (ED) Referrals: Ilana Kathleen MD [Primary Care Provider] - 2 Days (if no better) Additional Instructions: drink plenty of fluids start zithromax and take as directed use over the counter Robitussin for cough relief return if you experience shortness of breath - Billing Disposition and Condition Condition: GOOD Disposition: Home
== END 2019-06-17 09:31 | disposition home or self-care (01) ==
LOC: UCEAST 08:55
DX: J40 Bronchitis, not specified as acute or chronic (principal); I10 Essential (primary) hypertension; R09.81 Nasal congestion; Z88.1 Allergy status to other antibiotic agents; Z87.891 Personal history of nicotine dependence
CPT/HCPCS: 99212; G0463

== ENCOUNTER 2022-12-10 15:55 | Inpatient (IN) ==
[2022-12-10 16:23] LABS: ABS Eosinophils 0.1 10^3/uL (0.0-0.5); ABS Lymphocytes 1.2 10^3/uL (1.0-4.8); ABS Monocytes 0.7 10^3/uL (0.0-1.1); ABS Neutrophils 4.4 10^3/uL (1.5-7.6); ABS Nucleated RBC 0.01 10^3/ul; Hematocrit 49.9 % (38-53); Hemoglobin 16.7 g/dL (13.2-16.3); Lymphocyte % 18.4 %; Mean Corpuscular Hemoglobin 31.9 pg (27-33); Mean Corpuscular Hgb Conc 33.5 g/dL (31-36); Mean Corpuscular Volume 95.3 fL (80-97); Mean Platelet Volume 7.6 fL (7.5-11.2); Nucleated Red Blood Cells % 0.1 /100 WBC (0.0-0.4); Platelet Count 169 10^3/uL (150-450); Red Blood Count 5.23 10^6/uL (4.06-5.63); Red Cell Distribution Width 15.4 % (12-17); White Blood Count 6.4 10^3/uL (3.6-10.2)
[2022-12-10 16:46] LABS: INR 1.45 (0.88-1.18)
[2022-12-10 17:00] LABS: Albumin/Globulin Ratio 1.5 (1-3); Calcium 9.6 mg/dL (8.6-10.3); Creatinine, Serum 1.18 mg/dL (0.67-1.17); Globulin 2.7 g/dL (2-4); Potassium 4.2 mmol/L (3.5-5.0); Total Protein 6.7 g/dL (6.4-8.9); eGFR CKD-EPI 61.2 (>60)
[2022-12-10 18:38] LABS: High Sensitivity Troponin 1 Hr 100 pg/mL (<20)
[2022-12-11] MEDS ORDERED: NS 0.9% 1000 ml BAG 1,000 ML IV SCH
[2022-12-11 01:36] LABS: Magnesium 2.1 mg/dL (1.9-2.7)
[2022-12-11] MEDS ORDERED: Regadenoson 0.4 MG/5 ML SYRINGE ONE (08:34)
[2022-12-11] MEDS ORDERED: Heparin DRIP 25,000 UNITS BAG 25,000 UNITS/500 ML BAG IV SCH (08:45)
[2022-12-11 09:00] LABS: Albumin 3.8 g/dL (3.2-5.2); Albumin/Globulin Ratio 1.5 (1-3); Calcium 9.1 mg/dL (8.6-10.3); Creatinine, Serum 0.97 mg/dL (0.67-1.17); Globulin 2.5 g/dL (2-4); HDL Cholesterol 58.9 mg/dL; Total Bilirubin 1.7 mg/dL (0.2-1.0); Total Protein 6.3 g/dL (6.4-8.9); eGFR CKD-EPI 77.5 (>60)
[2022-12-11] MEDS ORDERED: Heparin 5000 UNITS/ML 1 mL VIAL IV SCH (09:00)
[2022-12-11 09:01] LABS: INR 1.42 (0.88-1.18)
[2022-12-11 09:11] LABS: TSH Ultra Thyroid Stim Horm 2.18 mcIU/mL (0.34-5.60)
[2022-12-12 06:39] LABS: Hematocrit 47.1 % (38-53); Hemoglobin 15.7 g/dL (13.2-16.3); Mean Corpuscular Hemoglobin 31.6 pg (27-33); Mean Corpuscular Hgb Conc 33.3 g/dL (31-36); Mean Corpuscular Volume 95.1 fL (80-97); Mean Platelet Volume 7.8 fL (7.5-11.2); Platelet Count 162 10^3/uL (150-450); Red Blood Count 4.96 10^6/uL (4.06-5.63); White Blood Count 7.6 10^3/uL (3.6-10.2)
[2022-12-12 07:00] LABS: Albumin 3.6 g/dL (3.2-5.2); Albumin/Globulin Ratio 1.5 (1-3); Creatinine, Serum 0.94 mg/dL (0.67-1.17); Globulin 2.4 g/dL (2-4); Potassium 3.8 mmol/L (3.5-5.0); Total Bilirubin 1.5 mg/dL (0.2-1.0); eGFR CKD-EPI 80.4 (>60)
[2022-12-12] MEDS ORDERED: Potassium Chlor 20 meq TAB.ER PO ONE (08:26)
[2022-12-12] MEDS: Enoxaparin 80 MG/0.8 ML SYR SUBCUT SCH ×2 (09:04→21:05)
[2022-12-13 06:12] LABS: Hematocrit 45.6 % (38-53); Hemoglobin 15.4 g/dL (13.2-16.3); Mean Corpuscular Hemoglobin 31.5 pg (27-33); Mean Corpuscular Hgb Conc 33.8 g/dL (31-36); Mean Corpuscular Volume 93.3 fL (80-97); Mean Platelet Volume 7.8 fL (7.5-11.2); Platelet Count 178 10^3/uL (150-450); Red Blood Count 4.89 10^6/uL (4.06-5.63); Red Cell Distribution Width 15.4 % (12-17); White Blood Count 8.1 10^3/uL (3.6-10.2)
[2022-12-13 06:33] LABS: Calcium 8.9 mg/dL (8.6-10.3); Creatinine, Serum 0.93 mg/dL (0.67-1.17); Potassium 4.1 mmol/L (3.5-5.0); eGFR CKD-EPI 81.5 (>60)
[2022-12-13] MEDS: Enoxaparin 80 MG/0.8 ML SYR SUBCUT SCH ×2 (10:22→20:13)
[2022-12-13 15:07] LABS: ABS Eosinophils 0.1 10^3/uL (0.0-0.5); ABS Lymphocytes 1.5 10^3/uL (1.0-4.8); ABS Neutrophils 5.3 10^3/uL (1.5-7.6); Eosinophil % 0.8 %; Hematocrit 46.1 % (38-53); Hemoglobin 15.6 g/dL (13.2-16.3); Lymphocyte % 19.3 %; Mean Corpuscular Hemoglobin 31.8 pg (27-33); Mean Corpuscular Hgb Conc 33.7 g/dL (31-36); Mean Corpuscular Volume 94.3 fL (80-97); Mean Platelet Volume 7.9 fL (7.5-11.2); Platelet Count 191 10^3/uL (150-450); Red Blood Count 4.89 10^6/uL (4.06-5.63); Red Cell Distribution Width 15.2 % (12-17)
[2022-12-13 15:16] LABS: INR 1.49 (0.88-1.18)
[2022-12-13 15:56] LABS: Calcium 8.7 mg/dL (8.6-10.3); Creatinine, Serum 1.09 mg/dL (0.67-1.17); Potassium 4.2 mmol/L (3.5-5.0); eGFR CKD-EPI 67.3 (>60)
[2022-12-13] MEDS ORDERED: Lidocaine PATCH 4% 1 EA TOPICAL ONE (16:01)
[2022-12-13] MEDS ORDERED: Lidocaine PATCH 5% PATCH TRANSDERM ONE (19:58)
[2022-12-14 05:51] LABS: Hematocrit 45.6 % (38-53); Hemoglobin 15.2 g/dL (13.2-16.3); Mean Corpuscular Hemoglobin 31.3 pg (27-33); Mean Corpuscular Hgb Conc 33.3 g/dL (31-36); Mean Platelet Volume 7.8 fL (7.5-11.2); Platelet Count 198 10^3/uL (150-450); Red Blood Count 4.85 10^6/uL (4.06-5.63); Red Cell Distribution Width 15.2 % (12-17); White Blood Count 9.1 10^3/uL (3.6-10.2)
[2022-12-14] MEDS ORDERED: NS 0.9% 1000 ml BAG 1,000 ML IV SCH (06:00)
[2022-12-14 06:23] LABS: Calcium 8.6 mg/dL (8.6-10.3); Creatinine, Serum 1.04 mg/dL (0.67-1.17); Potassium 4.3 mmol/L (3.5-5.0); eGFR CKD-EPI 71.2 (>60)
[2022-12-14] MEDS ORDERED: Acetaminophen IV 1 GM/100ML 1,000 MG/100 ML BAG IV ONE (08:42)
[2022-12-14] MEDS ORDERED: Morphine 4 MG/ML VIAL (1 ml) IV ONE (09:44)
[2022-12-14] MEDS ORDERED: Acetaminophen IV 1 GM/100ML 1,000 MG/100 ML BAG IV PRN (09:56)
[2022-12-14] MEDS ORDERED: Morphine 2 MG/ML SYRINGE IV ONE (11:00)
[2022-12-14] MEDS ORDERED: fentaNYL 100 mcg/2 ml 50 MCG/ML VIAL ONE (11:34)
[2022-12-14] MEDS ORDERED: Midazolam 5 mg/5 ml VIAL 1 mg/ml 5 ml VIAL (5 mg) ONE (11:34)
[2022-12-14] MEDS ORDERED: Heparin 1,000 UNIT/ML 10 ml (10,000 UNITS) CATHLAB/DIALYSIS ONE (11:34)
[2022-12-14] MEDS ORDERED: Iohexol 350 (CONTRAST) 200 ML MDV IV ONE (11:35)
[2022-12-14] MEDS ORDERED: niCARdipine 0.1MG/ML IVPREMIX 20 MG/200 ML BAG IV ONE (11:35)
[2022-12-14] MEDS ORDERED: Heparin 2 UNITS/ML 1000 mls 2,000 ML IV ONE (11:35)
[2022-12-14] MEDS ORDERED: Heparin 2 UNITS/ML 1000 mls 1,000 ML IV ONE (11:35)
[2022-12-14] MEDS ORDERED: Lidocaine 1% MPF 5 ML VIAL ONE (11:35)
[2022-12-14] MEDS ORDERED: Iohexol 350 (CONTRAST) 100 ML PAK IV ONE (11:35)
[2022-12-14] MEDS ORDERED: nitroGLYCERIN DRIP 25,000 MCG/250 ML BTL ONE (11:35)
[2022-12-15] MEDS ORDERED: NS 0.9% 500 ml BAG 500 ML IV ONE (15:46)
[2022-12-15 18:39] LABS: ABS Eosinophils 0.2 10^3/uL (0.0-0.5); ABS Monocytes 1.2 10^3/uL (0.0-1.1); ABS Neutrophils 5.9 10^3/uL (1.5-7.6); ABS Nucleated RBC 0.01 10^3/ul; Eosinophil % 1.7 %; Hematocrit 39.6 % (38-53); Hemoglobin 13.3 g/dL (13.2-16.3); Lymphocyte % 21.6 %; Mean Corpuscular Hemoglobin 31.5 pg (27-33); Mean Corpuscular Hgb Conc 33.5 g/dL (31-36); Mean Corpuscular Volume 93.9 fL (80-97); Mean Platelet Volume 7.6 fL (7.5-11.2); Nucleated Red Blood Cells % 0.1 /100 WBC (0.0-0.4); Platelet Count 203 10^3/uL (150-450); Red Blood Count 4.22 10^6/uL (4.06-5.63); Red Cell Distribution Width 15.3 % (12-17); White Blood Count 9.3 10^3/uL (3.6-10.2)
[2022-12-16] MEDS ORDERED: Lidocaine PATCH 5% PATCH TRANSDERM SCH (11:00)
[2022-12-16 16:17] VITALS: BP 100/60
== END 2022-12-16 14:20 | disposition home or self-care (01) | DRG 287 ==
LOC: ED 15:55 → EDHOLD 15:55 → SUATTDRO 22:24 → MEDTELE 12-11 21:16
PROVIDERS: ADMIT Student in an Organized Health Care Education/Training Program; ATTEND Internal Medicine

== ENCOUNTER 2023-02-14 04:22 | Observation (INO) ==
[2023-02-14 04:49] LABS: ABS Eosinophils 0.1 10^3/uL (0.0-0.5); ABS Lymphocytes 1.5 10^3/uL (1.0-4.8); ABS Monocytes 1.1 10^3/uL (0.0-1.1); ABS Neutrophils 5.6 10^3/uL (1.5-7.6); Eosinophil % 0.8 %; Hematocrit 50.1 % (38-53); Lymphocyte % 18.1 %; Mean Corpuscular Hemoglobin 31.5 pg (27-33); Mean Corpuscular Hgb Conc 33.8 g/dL (31-36); Mean Corpuscular Volume 93.1 fL (80-97); Mean Platelet Volume 7.7 fL (7.5-11.2); Platelet Count 185 10^3/uL (150-450); Red Blood Count 5.38 10^6/uL (4.06-5.63); White Blood Count 8.2 10^3/uL (3.6-10.2)
[2023-02-14 04:54] LABS: INR 1.58 (0.88-1.18)
[2023-02-14 05:10] LABS: Albumin 4.1 g/dL (3.2-5.2); Albumin/Globulin Ratio 1.3 (1-3); Calcium 9.5 mg/dL (8.6-10.3); Creatinine, Serum 1.21 mg/dL (0.67-1.17); Globulin 3.2 g/dL (2-4); Potassium 4.2 mmol/L (3.5-5.0); Total Bilirubin 0.7 mg/dL (0.2-1.0); Total Protein 7.3 g/dL (6.4-8.9); eGFR CKD-EPI 59.4 (>60)
[2023-02-14 06:42] LABS: High Sensitivity Troponin 1 Hr 60 pg/mL (<20)
[2023-02-14 07:48] LABS: Magnesium 2.3 mg/dL (1.9-2.7)
[2023-02-14] MEDS ORDERED: Lidocaine PATCH 5% PATCH TRANSDERM ONE (07:52)
[2023-02-14] MEDS ORDERED: HYDROcodone/ACETAMIN 5/325 mg TAB PO ONE (07:52)
[2023-02-14 08:31] LABS: Urine Appearance Clear; Urine Bilirubin Negative (Negative); Urine Blood 1+ (Negative); Urine Color Yellow; Urine Glucose 3+(>=500 mg/dL) (Negative); Urine Ketones Negative (Negative); Urine Nitrite Negative (Negative); Urine Protein 2+(100 mg/dL) (Negative); Urine Specific Gravity 1.018 (1.002-1.030); Urine Urobilinogen Negative (Negative)
[2023-02-14 09:38] LABS: Urine Bacteria Absent (Absent); Urine Red Blood Cell 1+(3-5/hpf) (Absent); Urine White Blood Cell Trace(0-5/hpf) (Absent)
[2023-02-14] MEDS ORDERED: NF:Mirabegron 50 mg ER TAB (NF) PO SCH (21:00)
[2023-02-15] MEDS ORDERED: Lidocaine PATCH 5% PATCH TRANSDERM ONE (08:44)
[2023-02-15] MEDS: Lidocaine PATCH 5% PATCH TRANSDERM SCH ×2 (08:48→09:25)
[2023-02-15 10:58] VITALS: BP 146/109
== END 2023-02-15 11:00 | disposition home or self-care (01) ==
LOC: ED 04:22 → EDHOLD 04:22 → SUATTDRO 11:22 → EDHOLD 02-15 10:57
PROVIDERS: ADMIT Internal Medicine; ATTEND Internal Medicine

== ENCOUNTER 2023-12-22 10:29 | Observation (INO) ==
[2023-12-22 11:07] LABS: ABS Eosinophils 0.1 10^3/uL (0.0-0.5); ABS Monocytes 0.8 10^3/uL (0.0-1.1); ABS Neutrophils 5.8 10^3/uL (1.5-7.6); ABS Nucleated RBC 0.02 10^3/ul; Eosinophil % 1.1 %; Hematocrit 49.4 % (38-53); Hemoglobin 16.7 g/dL (13.2-16.3); Lymphocyte % 12.6 %; Mean Corpuscular Hemoglobin 33.3 pg (27-33); Mean Corpuscular Hgb Conc 33.7 g/dL (31-36); Mean Corpuscular Volume 98.7 fL (80-97); Mean Platelet Volume 7.6 fL (7.5-11.2); Nucleated Red Blood Cells % 0.2 %/100WBC (0.0-0.8); Platelet Count 173 10^3/uL (150-450); Red Blood Count 5.01 10^6/uL (4.06-5.63); Red Cell Distribution Width 14.8 % (12-17); White Blood Count 7.7 10^3/uL (3.6-10.2)
[2023-12-22 11:19] LABS: INR 1.67 (0.83-1.13)
[2023-12-22 12:24] LABS: Albumin/Globulin Ratio 1.5 (1-3); Calcium 8.9 mg/dL (8.6-10.3); Creatinine, Serum 0.94 mg/dL (0.67-1.17); Globulin 2.6 g/dL (2-4); Potassium 4.1 mmol/L (3.5-5.0); Total Bilirubin 1.8 mg/dL (0.2-1.0); Total Protein 6.6 g/dL (6.4-8.9); eGFR CKD-EPI 79.9 (>60)
[2023-12-22 13:11] LABS: High Sensitivity Troponin 1 Hr 67 pg/mL (<20)
[2023-12-22 13:31] LABS: Magnesium 2.2 mg/dL (1.9-2.7)
[2023-12-22] MEDS: Furosemide 20 mg/2 ml IV VIAL IV SLOW PU ONE (15:00)
[2023-12-22] MEDS: Levalbuterol 1.25MG/0.5ML NEB.SOL INH ONE (15:02)
[2023-12-22 16:02] LABS: C Reactive Protein 13.57 mg/L (<8.01)
[2023-12-22] MEDS: NF: Lifitegrast (NF) 1 BTL BOTH EYES SCH (21:07)
[2023-12-23 07:07] LABS: Hematocrit 51.7 % (38-53); Hemoglobin 17.2 g/dL (13.2-16.3); Mean Corpuscular Hemoglobin 32.7 pg (27-33); Mean Corpuscular Hgb Conc 33.2 g/dL (31-36); Mean Corpuscular Volume 98.4 fL (80-97); Mean Platelet Volume 7.9 fL (7.5-11.2); Platelet Count 196 10^3/uL (150-450); Red Blood Count 5.25 10^6/uL (4.06-5.63); Red Cell Distribution Width 14.6 % (12-17); White Blood Count 9.2 10^3/uL (3.6-10.2)
[2023-12-23 07:52] LABS: Calcium 9.1 mg/dL (8.6-10.3); Creatinine, Serum 1.03 mg/dL (0.67-1.17); Magnesium 2.1 mg/dL (1.9-2.7); Potassium 3.8 mmol/L (3.5-5.0); eGFR CKD-EPI 71.6 (>60)
[2023-12-23 10:11] VITALS: BP 121/79
[2023-12-23] MEDS: Furosemide 40 mg/4 ml IV VIAL IV SLOW PU ONE (11:40)
[2023-12-23] MEDS ORDERED: CMCS: Mirabegron 25 mg ER TAB (NF) PO SCH (21:00)
== END 2023-12-23 14:40 | disposition home or self-care (01) ==
LOC: ED 10:29 → EDHOLD 10:29 → SUATTDRO 15:06 → MEDTELE 16:53
PROVIDERS: ADMIT Internal Medicine; ATTEND Internal Medicine